=== PATIENT | male | born 1955 | race Caucasian/White ===

== ENCOUNTER 2023-06-30 10:36 | Inpatient (IN) | payer OTHER, SELFPAY ==
[2023-06-23 12:31] VITALS: BMI 24.7
[2023-06-23 13:22] LABS: Urine Bilirubin Negative (Negative); Urine Glucose Negative (Negative); Urine Ketone Negative (Negative); Urine Occult Blood 4+ (Negative); Urine Urobilinogen Negative (Neg - 1+)
[2023-06-23 13:24] LABS: % Eosinophils 9.7 % (0-6); % Immature Granulocytes 0.2 % (0-0.5); % Lymphocytes 39.7 % (20.5-51.1); % Monocytes 9.9 % (1.7-9.3); % Neutrophils 38.5 % (42.2-75.2); Absolute Basophils 0.1 10^3/uL (0-0.2); Absolute Eosinophils 0.5 10^3/uL (0-0.7); Absolute Monocytes 0.5 10^3/uL (0.1-0.6); Absolute Neutrophils 1.9 10^3/uL (1.4-6.5); Hematocrit 31.3 % (39.0-52.0); Hemoglobin 9.9 g/dL (13.0-18.0); Mean Corp Hgb Conc. 31.6 g/dL (33.0-37.0); Mean Corpuscular Hgb 25.8 pg (27.0-31.0); Mean Corpuscular Volume 81.5 fL (80.0-94.0); Mean Platelet Volume 9.5 fL (7.4-10.4); Nucleated Red Blood Cells % 0 % (-); Platelet Count 251 10^3/uL (130-400); Red Blood Cell Count 3.84 10^6/uL (4.70-6.10); Red Cell Dist. Width 15.2 % (11.5-14.5); White Blood Cell Count 4.9 10^3/uL (4.8-10.8)
[2023-06-23 13:34] LABS: ALT (SGPT) 12 U/L (0-50); AST (SGOT) 19 U/L (17-59); Albumin 3.3 g/dl (3.5-5.0); Alkaline Phosphatase 74 U/L (38-126); Blood Urea Nitrogen 12 mg/dl (9-20); Calcium 8.6 mg/dl (8.4-10.2); Carbon Dioxide 23 mmol/L (22-30); Chloride 105 mmol/L (98-107); Estimated Creatinine Clearance 60 ml/min; Glucose 88 mg/dl (70-99); Sodium 138 mmol/L (135-145); Total Bilirubin 0.7 mg/dl (0.2-1.3); Total Protein 6.3 g/dl (6.3-8.2); eGFR > 60.00
[2023-06-23 13:44] LABS: PT 32.4 Sec (11.4-14.6)
[2023-06-23 13:45] LABS: APTT 45.5 Sec (23.4-35.0)
[2023-06-23 14:04] LABS: Urine Red Blood Cell 16-20 /HPF (0-2); Urine Urothelial Cell 0-2 /LPF (FEW)
[2023-06-23 14:05] LABS: Urine Bacteria Few (Negative); Urine White Cell 0-2 /HPF (0-5)
[2023-06-23 14:07] LABS: Glycohemoglobin (HgbA1c) 5.3 % (4.0-5.6)
--- NOTE | 2023-06-23 14:28 | CM ---
Met with Mr. Foy in [facility]. He states prior to admission he resides with his girlfriend in a three story home with one step to enter. He states he stays on the first floor. He states he bedroom/full bathroom on the first floor. He states prior to
admission he was independent with ambulation and adls. He states he does not have any DME in the home. He states he has a prescription plan and uses [facility]. He states he has a pleural catheter and [facility] comes three times a week to
drain the catheter. He states his significant other will be home to assist in his care. He states he has never been to a SNF/Rehab. PUPIL PERSONNEL SERVICES DIRECTOR at Dr[facility] to send script for for Nicotine Patch. The discharge plan is to return home with his
significant other and a home visit by the Cardiothoracic Transitional Care Nurse when medically stable.
We reviewed pr-op and post-op routines. We reviewed the shower instructions. He has the soap, written instructions and the Cardiothoracic Surgery Educational Booklet. We reviewed restrictions including sternal precautions and driving
restrictions. We also discussed a home visit by the Cardiothoracic Transitional Care Nurse. He is agreeable to home visit. The plan is for AVR on Saturday, July 01, 2023.
[2023-06-30 11:19] VITALS: BMI 24.7
[2023-06-30 11:36] LABS: Hematocrit 26.7 % (39.0-52.0); Hemoglobin 8.5 g/dL (13.0-18.0); Mean Corp Hgb Conc. 31.8 g/dL (33.0-37.0); Mean Corpuscular Hgb 25.8 pg (27.0-31.0); Mean Corpuscular Volume 80.9 fL (80.0-94.0); Mean Platelet Volume 8.4 fL (7.4-10.4); Platelet Count 187 10^3/uL (130-400); Red Cell Dist. Width 16.9 % (11.5-14.5); White Blood Cell Count 4.2 10^3/uL (4.8-10.8)
[2023-06-30 11:51] LABS: APTT 25.6 Sec (23.4-35.0); INR 1.18; PT 15.1 Sec (11.4-14.6)
[2023-06-30] MEDS: PROTONIX 40 MG PO (12:29)
[2023-06-30] MEDS: TOPROL XL 25 MG PO ×2 (12:30→19:45)
[2023-06-30] MEDS: LASIX 20 MG IV (12:30)
[2023-06-30 12:50] LABS: Albumin 2.9 g/dl (3.5-5.0); Blood Urea Nitrogen 11 mg/dl (9-20); Chloride 114 mmol/L (98-107); Potassium 4.3 mmol/L (3.5-5.1); Sodium 139 mmol/L (135-145); Total Bilirubin 0.4 mg/dl (0.2-1.3)
--- NOTE | 2023-06-30 12:53 | CON.GI ---
Addendum entered and electronically signed by Lan Gregorio MD 06/30/23 18:09:
I saw and examined the patient.
The CLUTCH ASSEMBLER or PA's note was reviewed and I agree with the note.
Comment:This is a 67-year-old male with progressively severe aortic valve stenosis, A-fib on Xarelto, who has an extensive GI history and followed at [facility] in the past. I reviewed records. He seems to have iron deficiency anemia and GI
bleeding due to AVMs. He had a colonoscopy with AVMs that were treated back in 2020 as well as a prepyloric ulcer in February 2023. He most recently underwent upper endoscopy and colonoscopy in June 17, 2023 which were negative and was
recommended to have a capsule which is it is unclear if it is scheduled. Patient is a poor historian. Ultimately, I suspect he has AVMs and fixing his aortic stenosis may fix this underlying issue.
Additionally, reviewing the records there is mention that he does have alcoholic cirrhosis. His MELD is 9. CT scan done shows cirrhosis and also mentions a liver lesion. Of note, [facility] notes also mention a liver lesion and he was recommended
to follow at [facility] hepatology which she did not do. Alpha-fetoprotein has been ordered and pending. MRI has been ordered and I also added Eovist.
In regards to his risk stratification, his Meadow vocal score if he is ASA 3, 30-day mortality 4.3%, 90-day mortality 9.1%, 180-day mortality 12.6%, 90-day decompensation 5.9% for cardiac surgery. If he is in a ASA 4, 30-day mortality 11.4%, 90-day
mortality 19.9%, 180 a day mortality 26.8%, 90-day decompensation 7.8%.
I have discussed with cardiothoracic surgery.
Original Note:
Consultation
-
Date/Time Consultation Requested: 06/30/23 1200
Date/Time Consultation Performed: 06/30/23 1300
Requesting Provider: Thu Salazar PA-C
Performing Provider: MICHAEL Ford, Tiffanie Gregoiro MD
Reason for Consultation: eval for risk of surgery with hx liver disease
Medical History
Chief Complaint / HPI
Chief Complaint: anemia recent GI bleed
History of Present Illness:
Pt is a 67yo presents with progressive severe AV stenosis, HTN, afib on Xarelto with prior PVI, AV block, junctional bradycardia, cirrhosis- ETOH induced, liver lesion, ETOH abuse, prior GI bleed, NASIR, CKD, brain aneurysm, medical non compliance
asked to see from liver standpoint prior to surgical AVR for risk. In reviewing [facility] records pt was admitted in 2020 hbg 7.3 EGD with mild antral erythema small HH, patchy angioectasis in ascending colon single angioectasia in sigmoid colon
with APC treatment. 2021 with melena. EGD/colon completed with shallow prepyloric ulcer and diverticulosis with PPI started. with admission 02/2023 with rectal bleeding. EGD with HH with erosions and duodenal polyp, small IH no bleeding. He
was placed on PPI BID on discharge. During admission he had CT a/p with 2 cm liver lesion concern for HCC with neg AFP and was scheduled for liver specialist- [facility] to review but was not returning calls to GI . He was also admitted in [facility]
with large pleural effusion and PNA and Pleurx cath was placed. He returned 05/3023 with acute GI bleed requiring multiple transfusions. repeat EGD/colon neg 06/17/23 and due OP capsule.
At this time pt very poor historian. He denies hx cirrhosis, liver lesion but recalls significant GI bleed but unclear source. He currently dysphagia, GERD, nausea, vomiting, abdominal pain, diarrhea, constipation, diarrhea, constipation,
current blood or black in stools.
Past Medical History
Past Medical History: Arrhythmias (afib with PVI, AV block, junctional bradicardia with med non compliance in March with temp pacer), CAD, CHF, COPD, CVA, HTN, Hypercholesterolemia, Renal Failure (CKD), Valvular Disease (severe Aortic stenosis)
and Other (NASIR, RADHA, LV hypertrophy, brain aneurysm, medical non compliance, cirrhosis, PNA, GI bleed, liver mass, malnutrition, AVM, gastric ulcer, anemia, elevated PSA, pulm nodule, covid, effusion, ETOH abuse)
Past Surgical History: Cardiac (PVI 2018), Urological (TURP) and Other (teeth extraction 04/2023, PVI 2018, pleural drain, prostate bx )
Social History
Tobacco: Smoker (03/29 PPD)
Alcohol: Chronic Alcoholic (currrent 1-2 beers per day)
Drug: Marijuana (daily)
Personal: Other (friend)
Employment: Retired
Family History
Family History: Other (denies family hx colon cA or polyps)
Allergies / Home Medications
Allergy/AdvReac Type Severity Reaction Status Date / Time
No Known Allergies Allergy Verified 10/28/21 08:08
�Medication �Instructions �Recorded
atorvastatin 20 mg tablet 20 mg PO DAILY High Cholesterol 06/23/23
folic acid 1 mg tablet 1 mg PO DAILY Supplement 06/23/23
furosemide 20 mg tablet 20 mg PO DAILY Fluid 06/23/23
Retention/Swelling
magnesium 200 mg tablet 400 mg PO DAILY Supplement 06/23/23
metoprolol succinate 25 mg 25 mg PO BID Heart 06/23/23
tablet,extended release 24 hr Disease/Condition
omega [id number]-fish oil 1,200 mg 1 cap PO BID Supplement 06/23/23
(144 mg-216 mg) capsule (Fish Oil)
potassium chloride 20 mEq oral 20 meq PO DAILY Electrolyte 06/23/23
packet (Klor-Con) Repletion
trazodone 50 mg tablet 50 mg PO HS PRN sleep 06/23/23
vitamin B complex 1 cap PO DAILY Supplement 06/23/23
rivaroxaban 20 mg tablet (Xarelto) 20 mg PO QPM Blood Clot 06/30/23
Prevention/Tx
Review of Systems
-
Unable to obtain full review of systems at this time due to: Other (poor historian)
History Source: Patient
Constitutional: Reports No Symptoms
EENT: Reports No Symptoms
Respiratory: Reports Trouble Breathing (at times with pleurx in place )
Cardiac: Reports No Symptoms
Abdomen/GI: Reports Other (recent GI bleed )
: Reports No Symptoms
Musculoskeletal: Reports No Symptoms
Skin: Reports No Symptoms
Neurological: Reports Other (forgetful)
Endocrine: Reports No Symptoms
Hematologic/Lymphatic: Reports No Symptoms
Vital Signs
Temp Pulse Resp BP Pulse Ox
98.0 F 131 18 133/54 100
06/30/23 11:05 06/30/23 12:30 06/30/23 11:05 06/30/23 12:30 06/30/23 11:05
Physical Exam
Exam
General: Well Developed, Well Nourished and No Apparent Distress
HEENT: Normocephalic and Anicteric
Respiratory: Other (decreased bases )
Cardiac: Murmur and Other (tachy)
GI: Soft, Non Tender and Non Distended
Musculoskeletal: No Clubbing and No Cyanosis
Skin: Warm and Dry
Neuro: Awake, Alert and Other (forgetful)
Psych: Calm
Results
WBC 4.2 10^3/uL (4.8-10.8) L 06/30/23 11:28
Hgb 8.5 g/dL (13.0-18.0) L 06/30/23 11:28
Hct 26.7 % (39.0-52.0) L 06/30/23 11:28
MCV 80.9 fL (80.0-94.0) 06/30/23 11:28
Plt Count 187 10^3/uL (130-400) D 06/30/23 11:28
Absolute Neuts (auto) 1.9 10^3/uL (1.4-6.5) 06/23/23 12:24
PT 15.1 Sec (11.4-14.6) H 06/30/23 11:28
INR 1.18 06/30/23 11:28
APTT 25.6 Sec (23.4-35.0) 06/30/23 11:28
Sodium 139 mmol/L (135-145) 06/30/23 11:28
Potassium 4.3 mmol/L (3.5-5.1) 06/30/23 11:28
Chloride 114 mmol/L (98-107) H 06/30/23 11:
Carbon Dioxide 23 mmol/L (22-30) 06/23/23 12:24
BUN 11 mg/dl (9-20) 06/30/23 11:
Creatinine 0.9 mg/dL (0.7-1.3) 06/23/23 12:
Calcium 8.0 mg/dl (8.4-10.2) L 06/30/23 11:
Total Bilirubin 0.4 mg/dl (0.2-1.3) 06/30/23 11:
AST 19 U/L (17-59) 06/23/23 12:24
ALT 12 U/L (0-50) 06/23/23 12:24
Alkaline Phosphatase 74 U/L (38-126) 06/23/23 12:24
Diagnostic Image Results:
06/30/23 CT Chest/abd/pelvis- pending
Prior GI Procedures:
EGD: 2018 - Normal esophagus. irreg Z line, antral gastritis, SM nodule in stomach, 2 SM nodule Duodenal bulb, bx duodenitis , reactive gastropathy, neg H pylori, sprue
Colonoscopy:2018- - Preparation of the colon was fair. 10 mm polyp proximal sigmodi colon, clip placed bx TA no high grade dysplasia or maligancy
Assessment / Plan
-
Pt is a 67yo presents with progressive severe AV stenosis, HTN, afib on Xarelto with prior PVI, AV block, junctional bradycardia, cirrhosis- ETOH induced, liver lesion, ETOH abuse, prior GI bleed, NASIR, CKD, brain aneurysm, medical non compliance
asked to see from liver standpoint prior to surgical AVR for risk. In reviewing [facility] records pt was admitted in 2020 hbg 7.3 EGD with mild antral erythema small HH, patchy angioectasis in ascending colon single angioectasia in sigmoid colon
with APC treatment. 2021 with melena. EGD/colon completed with shallow prepyloric ulcer and diverticulosis with PPI started. with admission 02/2023 with rectal bleeding. EGD with HH with erosions and duodenal polyp, small IH no bleeding. He
was placed on PPI BID on discharge. During admission he had CT a/p with 2 cm liver lesion concern for HCC with neg AFP and was scheduled for liver specialist- [facility] to review but was not returning calls to GI . He was also admitted in March
with large pleural effusion and PNA and Pleurx cath was placed. He returned 05/3023 with acute GI bleed requiring multiple transfusions. repeat EGD/colon neg 06/17/23 and due OP capsule.
At this time pt very poor historian. He denies hx cirrhosis, liver lesion but recalls significant GI bleed but unclear source. He currently dysphagia, GERD, nausea, vomiting, abdominal pain, diarrhea, constipation, diarrhea, constipation,
current blood or black in stools.
-severe due for surgical AVR
-anemia
-hx several GI bleeds last 05/2023 with multiple transfusions no source found due for capsule not completed
-hx colonic angioectasia with APC 2020
-hx prepyloric ulcer 2021
-hx cirrhosis ETOH related
-liver lesion- due for hepatology follow up normal AFP 02/2023
-large pleural effusion with pleux cath since March
-intermittent elevated INR ? Xarelto related
-hypoalbuminemia
other medical problems:
-junctional bradicardia with temp pacer in March
-HTN
-afib on Xarelto prior PVI
-HH
-right radial artery calcification
-marijuana daily use
-NASIR
-continued tobacco use
-brain aneurysm unclear if any prior intervention
-medical non compliance
-BPH with TURP neg bx
-pulm nodules
PLAN:
pt current eval from GI prior to SAVR
await CT to further characterize liver lesion, add repeat AFP was normal in February and due OP follow up with [facility]
may need further hepatology eval prior to SAVR with concern for liver mass possible HCC
[facility] records reviewed but no eval of prior liver serologies
will calculate vocal Marcio score with Dr. Gregorio
trend INR, CBC with recent anemia but no signs of active GI bleeding at this time
will review with Dr. Gregorio for further recommendations after CT reviewed
-
-
Thank you for consultation and allowing me to participate in the patient's care. Please call the electronic typesetting machine operator GI physician during the after hours with any questions or concerns.
[2023-06-30 12:59] LABS: Total Iron Binding Capacity 387 ug/dl (261-462)
--- NOTE | 2023-06-30 13:04 | PTCARENOTE ---
Pt admitted to Room 2263 as same day admit. Pt placed on monitor. #20 aleksey placed Rt AC. EKG done. Labs sent. Pt NPO since this am. Admission history obtained. Dr. Dent in to see patient. Pt with Rt pleurax drain in place, capped. See worklist for
VS/I and O and assessments.
--- NOTE | 2023-06-30 13:06 | W.PN.UPDATE ---
Update Note
Progress Note Update
Patient seen as an outpatient in the office by attending physician.
Please refer to visit on 06/07/2023 for full history and physical.
Patient admitted to [facility] on 06/30/2023 to complete preadmission testing. Patient to undergo repeat type and screen due to antibodies. H&H due to recent GI bleed, and CT of the chest abdomen and pelvis with and without IV contrast
for history of cirrhosis.
Patient admitted to CV unit via telemetry. Repeat CBC revealed a hemoglobin of 8.5 and hematocrit of 26.7 which is down from his previous draw on 06/23/23 (9.9/31.3). The rest of the patient's lab values revealed no acute abnormalities. The
patient was seen by attending physician Dr. Jordan Dent MD. Consults were placed to cardiology as well as gastroenterology.
Despite denying coughing up blood or blood in stool, given his drop in hemoglobin, we will plan on postponing his surgery until tentatively 07/06/2023. During this time we will complete formal GI workup.\\
Home medications have been ordered. Preoperative cardiothoracic surgery orders were discontinued. We will continue to hold the patient's Xarelto which she is on for atrial fibrillation. Discussion was had regarding the patient's anticoagulation
status. We will hold off on systemic anticoagulation with IV heparin and monitor him on telemetry for his current atrial fibrillation.
[2023-06-30 13:07] LABS: ALT (SGPT) < 10 U/L (0-50); AST (SGOT) 18 U/L (17-59); Alkaline Phosphatase 91 U/L (38-126); Carbon Dioxide 20 mmol/L (22-30); Estimated Creatinine Clearance 56 ml/min; Glucose 93 mg/dl (70-99); Iron 32 ug/dl (49-181); Percent Saturation 8 % (20-50); eGFR > 60.00
--- NOTE | 2023-06-30 13:49 | CON.CAR ---
Addendum entered and electronically signed by Sony Doan MD 06/30/23 17:42:
Attending addendum: Patient seen and examined. Known severe now symptomatic aortic stenosis. Dr. Dent recommended surgical AVR several years ago. The patient has been noncompliant with regular followup. He has been admitted to [facility] on several occasions over the past several months with recurrent GIB and has seen GI at [facility]. He has a history of alcohol use/abuse and possible cirrhosis. He has permanent atrial fibrillation and had been on oral anticoagulation. He had
a history of stopping and starting cardiac medications including sotalol and amiodarone. Dr. Dent spoke with patient and he was admitted today for possible surgical AVR tomorrow. However, several issues have arisen. HE was found to have hepatic
mass on CT imaging. Cardiology consult has been requested to assist with management
Gen: Awake, alert, oriented
HEENT: NC/AT, sclera anicteric
Lungs: Clear
CV: Irreg irreg and tachycardic. Crescendo decrescendo murmur at USB
Abd: soft, nontender, nondistended. Bowel sounds present
Ext: no edema
RECOMMENDATIONS:
-Aortic stenosis:
Likely severe symptomatic aortic stenosis.
I would repeat echocardiogram here to reassess aortic valve and mitral valve
GI input re: cirrhosis before ANY intervention is necessary
-Atrial fibrillation:
Hgb 8.5 with Hx of GI bleeding
Xarelto had been on hold in anticipation of surgery
GI is planning to see and evaluate.
We could utilize heparin if he will be off DOAC for several days
Could consider titration of beta keya OR low dose amiodarone as part of rate control strategy. He had been on amiodarone in the past. Not sure why it was stopped.
----Amiodarone is hepatically cleared so will need to discuss with GI
-GI Bleeding:
GI to see and evaluate possible GI bleeding and possible cirrhosis
CT now noting mass in liver
-Medial noncompliance
-Will continue to followup
Original Note:
Medical History
-
History of Present Illness:
Patient presented to for direct admission for planned SAVR tomorrow. Patient follows with Dr. Levine at [facility]. Patient was found to have severe and was evaluated for TAVR, but due to significant calcifications extending into his LVOT it
was felt that he would be better served by surgical AVR. Patient was then referred to Dr. Dent for severe and was recommended surgical AVR approximately 11/2021, but then no-showed repeatedly and stopped returning phone calls. Patient was also
spotty with follow up at his primary hand tapper's office, but has had a series of admissions to [facility] since about 01/2023. He has a h/o recurrent GIB. He was admitted for GIB 02/2023 and treated for gastric erosions and hemorrhoidal bleeding.
Patient then admitted to [facility] with bradycardia and HRs in the 30s requiring temporary transvenous pacemaker 03/2023 in the setting of taking old prescriptions of amiodarone and sotalol for unclear reasons. Once patient no longer had access to meds his
HR improved, temp wire was removed and he was restarted on Toprol. Patient then had 2 GIB admissions to [facility] 05/2023 and in between admissions saw Dr. Dent in the office and was agreeable to resuming SAVR. Patient with an extensive PMH as outlined
above after combing through all available [facility] records.
PMH:
Severe
previously recommended surgical AVR 11/2021, but patient cancelled and no-showed to multiple appointments
Anemia
h/o GIB
recent admission for GIB to [facility] requiring 5 units PRBCs, no obvious bleeding source by EGD/colon, needs outpatient capsule endoscopy 06/17/23
GIB with erosions and hemorrhoids at [facility] 02/2023
GIB with melena, ulcer and diverticular disease 2021
GIB with Hgb as low as 7, erythema, angiectasias 2020
Liver lesion concerning for HCC 03/24/23
AFP was normal
Alcoholic cirrhosis
Daily ETOH intake
Daily marijuana smoker
Chronic HFpEF
Right pleural effusion s/p Pleurx catheter being drained 3x/week since 03/2023
Persistent to permanent Afib
s/p PVI 12/29/17
previously on sotalol 2020, stopped due to QT prolongation
amiodarone started and then stopped due to failure to maintain SR
Chronic Xarelto OAC
Admission to [facility] for bradycardia and pleural effusion 03/2023
HR 30s requiring temporary transvenous pacer due to patient medication noncompliance and taking old prescriptions of amiodarone and sotalol for unclear reasons, resolved with washout period and eventually restarted on Toprol XL 25 mg daily
NASIR
CAD with 30-40% mid LAD lesion by cath 10/28/21
Diffuse severe calcific right radial artery by cath 10/28/21
Brain aneurysm, 2 mm ANGELITA aneurysm by MRA head 06/2013
BPH s/p TURP with negative biopsy 2020
Past Medical History
Past Medical History: Other (in HPI)
Past Surgical History: Cardiac (PVI 2017)
Social History
Tobacco: Smoker
Alcohol: Daily
Drug: Marijuana
Personal: Partner
Living: With Family
Family History
Family History: CAD, Diabetes and Hypertension
Allergies / Home Medications
Allergy/AdvReac Type Severity Reaction Status Date / Time
No Known Allergies Allergy Verified 10/28/21 08:08
�Medication �Instructions �Recorded �Confirmed �Type
atorvastatin 20 mg tablet 20 mg PO DAILY High Cholesterol 06/23/23 06/30/23 History
folic acid 1 mg tablet 1 mg PO DAILY Supplement 06/23/23 06/30/23 History
furosemide 20 mg tablet 20 mg PO DAILY Fluid 06/23/23 06/30/23 History
Retention/Swelling
magnesium 200 mg tablet 400 mg PO DAILY Supplement 06/23/23 06/30/23 History
metoprolol succinate 25 mg 25 mg PO BID Heart 06/23/23 06/30/23 History
tablet,extended release 24 hr Disease/Condition
omega 0-enb-fve-fish oil 1,200 mg 1 cap PO BID Supplement 06/23/23 06/30/23 History
(144 mg-216 mg) capsule (Fish Oil)
potassium chloride 20 mEq oral 20 meq PO DAILY Electrolyte 06/23/23 06/30/23 History
packet (Klor-Con) Repletion
trazodone 50 mg tablet 50 mg PO HS PRN sleep 06/23/23 06/30/23 History
vitamin B complex 1 cap PO DAILY Supplement 06/23/23 06/30/23 History
rivaroxaban 20 mg tablet (Xarelto) 20 mg PO QPM Blood Clot 06/30/23 06/30/23 History
Prevention/Tx
Review of Systems
-
History Source: Patient
All other systems: Negative unless noted
Physical Exam
Vital Signs
Temp Pulse Resp BP Pulse Ox
98.0 F 118 18 133/54 99
06/30/23 11:05 06/30/23 13:15 06/30/23 11:05 06/30/23 12:30 06/30/23 13:20
GEN: NAD. AAOx3
HEENT: EOMI
LUNGS: CTA B/L, no wheezes or rales
CV: Reg, S1/S2, 3/6 syst LSB
ABD: soft, BS+, NT, ND
EXT: No clubbing, cyanosis, lesions or edema B/L
NEURO: Gross non-focal
SKIN: Warm, dry and pink. No rash
Lab Results
06/30/23 11:28
06/30/23 11:28
Impression / Plan
-
Primary Md Ophthalmologist: Dr. Levine of [facility]
Research & Insights Executive: Dr. Quinn
Assessment:
Direct admission 06/30/23 prior to planned surgical AVR for severe 07/01/23
Severe
previously recommended surgical AVR 11/2021, but patient cancelled and no-showed to multiple appointments
Anemia
h/o GIB
recent admission for GIB to [facility] requiring 5 units PRBCs, no obvious bleeding source by EGD/colon, needs outpatient capsule endoscopy 06/17/23
GIB with erosions and hemorrhoids at [facility] 02/2023
GIB with melena, ulcer and diverticular disease 2021
GIB with Hgb as low as 7, erythema, angiectasias 2020
Liver lesion concerning for HCC 03/24/23
AFP was normal
Alcoholic cirrhosis
Daily ETOH intake
Daily marijuana smoker
Chronic HFpEF
Right pleural effusion s/p Pleurx catheter being drained 3x/week since 03/2023
Persistent to permanent Afib
s/p PVI 12/29/17
previously on sotalol 2020, stopped due to QT prolongation
amiodarone started and then stopped due to failure to maintain SR
Chronic Xarelto OAC
Admission to [facility] for bradycardia and pleural effusion 03/2023
HR 30s requiring temporary transvenous pacer due to patient medication noncompliance and taking old prescriptions of amiodarone and sotalol for unclear reasons, resolved with washout period and eventually restarted on Toprol XL 25 mg daily
NASIR
CAD with 30-40% mid LAD lesion by cath 10/28/21
Diffuse severe calcific right radial artery by cath 10/28/21
Brain aneurysm, 2 mm ANGELITA aneurysm by MRA head 06/2013
BPH s/p TURP with negative biopsy 2020
ECHO 03/2017: GV study, with preserved EF, LVH with wall thickness 1.2cm, mitral leaflet calcification with mild MS, mod , peak/mean gradients of 30/17mmHg, mild TR, PAP 43mmHg.
Echo 03/2023: GV study, Normal biventricular systolic function, mild LVH, severely dilated LA and moderately dilated RA, sev , moderate aortic regurgitation with mean gradient 39 mmHg, mod MR
Echo 06/2022: GV study, ILEANA less than 0.5 cm sq
Plan:
-Patient presented to for direct admission for planned SAVR tomorrow. Patient follows with Dr. Levine at [facility]. Patient was found to have severe and was evaluated for TAVR, but due to significant calcifications extending into his LVOT
it was felt that he would be better served by surgical AVR. Patient was then referred to Dr. Dent for severe and was recommended surgical AVR approximately 11/2021, but then no-showed repeatedly and stopped returning phone calls. Patient was
also spotty with follow up at his primary hand tapper's office, but has had a series of admissions to [facility] since about 01/2023. He has a h/o recurrent GIB. He was admitted for GIB 02/2023 and treated for gastric erosions and hemorrhoidal bleeding.
Patient then admitted to [facility] with bradycardia and HRs in the 30s requiring temporary transvenous pacemaker 03/2023 in the setting of taking old prescriptions of amiodarone and sotalol for unclear reasons. Once patient no longer had access to meds his
HR improved, temp wire was removed and he was restarted on Toprol. Patient then had 2 GIB admissions to [facility] 05/2023 and in between admissions saw Dr. Dent in the office and was agreeable to resuming SAVR. Patient with an extensive PMH as outlined
above after combing through all available [facility] records.
-Patient with h/o severe , previously recommended SAVR. Currently stable and admitted with plans for surgery tomorrow.
-Hgb now delayed to 07/06/23 due to Hgb of 8.5. Patient with multiple GIB admissions to [facility] as detailed above.
-Outpatient dose of Xarelto is on hold and no plans for Heparin bridging due to concern for GIB.
-GI following. There is also concern for a liver mass that was previously seen 03/24/23. Review of [facility] GI notes shows that their office repeatedly tried to arrange follow up with [facility] and patient refused to go to appointments and
other times would hang up the phone on their office. Repeat CT abd/pelvis today confirms a 2.6 cm liver lesion concerning for HCC. He also has known alcoholic cirrhosis and continues to drink. Although Plt 187 and LFTs normal.
-He smokes marijuana daily.
-Afib is permanent. ECG reviewed by me shows Afib with HR 110. Cont outpatient dose of Toprol XL 25 mg BID. He singh a PVI in 2018. Previously on sotalol that was stopped due to prolonged QT. Amiodarone stopped due to ineffectiveness.
-Previous admission 03/2023 for bradycardia and temp wire at [facility] was due to unexplained medication noncompliance and has not recurred.
-Check echo
[2023-06-30 13:59] LABS: Ferritin 8.2 ng/ml (17.9-464.0)
--- NOTE | 2023-06-30 14:47 | CM ---
Chart reviewed. Patient surgery was cancelled 2/2 drop in his hemoglobin and now needs a GI workup. AVR surgery is being rescheduled for 07/05. Patient is independent of ADLS, lives with his girlfriend in a 1st floor apartment, 1 ADAIR, 0 DME.
Patient is current with [facility] to manage his pleurax catheter. Plan is for the patient to return home with CT Transitional RN. CM to follow
[2023-06-30 15:08] VITALS: BMI 24.7
[2023-06-30 16:26] VITALS: BP 154/79
--- NOTE | 2023-06-30 18:09 | W.PN.UPDATE ---
Update Note
Progress Note Update
billing purposes
[2023-06-30] MEDS: LIPITOR 20 MG PO (18:10)
[2023-06-30 19:26] LABS: AFP Male/Tumor Marker 1.97 ng/ml
[2023-06-30 19:43] VITALS: BP 136/83
--- NOTE | 2023-06-30 20:41 | PTCARENOTE ---
received patient from CVICU at the change of shift. AAOx3. denies any pain. ambulating independently in the room. Afib on tele-115s. bp stable. patient denies any palps/cp. oriented patient to room. answered all questions. reviewed plan of care and
verbalized understanding. call marrero within reach.
[2023-06-30 22:38] VITALS: BP 103/93
[2023-07-01] VITALS (8 sets, daily range): BP systolic 104–138; BP diastolic 49–86; BMI 24.6
--- NOTE | 2023-07-01 01:29 | W.PN.CT ---
Addendum entered and electronically signed by Jordan Dent MD 07/01/23 09:11:
CARDIAC SURGERY ATTENDING:
Mr. Foy is extremely well-known to me. He is a very pleasant 67-year-old gentleman with a complex medical history and numerous social factors that have negatively affected his overall workup/care. He was initially evaluated by our structural
heart team back in 2021, but deemed more of an appropriate candidate for SAVR given the high degree of annular and subvalvular calcifications. The patient was lost to follow-up numerous times and canceled numerous scheduled appointments, failing to
respond to certified letters. More recently he has had episodes of poorly rate controlled atrial fibrillation, recurrent right-sided effusions requiring Pleurx catheter placement, significant acute blood loss anemia following recent GI bleed, and
increasing symptomatology from his aortic stenosis. A CT�C/A/P was obtained yesterday and demonstrated a cirrhotic appearing liver with a liver lesion that was concerning for possible HCC. GI was consulted, and I greatly appreciate their
expertise. Given his cirrhosis and this liver lesion coupled with his other comorbidities, the patient was represented at multidisciplinary structural heart team conference. From a risk v. benefit perspective, it was determined that TAVR would be
preferred over SAVR. Given that the extensive annular and subvalvular calcifications, TAVR will be at elevated procedural risks and elevated risk of post TAVR PVL. This was discussed with the patient. He is scheduled to undergo an MRI to further
define his liver lesion. Pending the results of the study, we will proceed with potential TAVR next week.
Please call with any questions or concerns.
Jordan Dent MD
[phone]
Original Note:
Today's Communication / Plan
-
67-year-old male admitted on 06/30/2023 for surgical optimization and possible AVR with Dr. Dent next week
#Atrial fibrillation
-Currently on metoprolol succinate 25 mg p.o. twice daily
-Heart rate 90s to 110s; consider up titration of metoprolol
-Previously on Xarelto; to consider eventual heparin drip
-Cardiology consulted
#Acute blood loss anemia with recent GI bleed due to AVM
-Continue to monitor CBC daily
-Transfuse as needed
-Pending MRI
-Hemoccult all stools
-GI consulted
#Liver cirrhosis
-MELD score equal 9
-CT scan yesterday showed liver cirrhosis and a liver lesion
-Monitor CBC and coags
#Severe aortic stenosis
-Continue surgical optimization for SAVR next week with Dr. Dent
-Will need additional type and screen
-Cardiology consulted
Assessment / Plan
-
Severe aortic stenosis
Recent GI bleed
EtOH abuse
Chronic atrial fibrillation s/p pulmonary vein isolation on Xarelto
Obstructive sleep apnea
Recurrent pleural effusions status post Pleurx placement in March 2023
History of iron deficiency anemia
Hyperlipidemia
History of a CVA; no residual
Chronic diastolic congestive heart failure
History of AV block/junctional bradycardia
Single-vessel nonobstructive CAD
Chronic kidney disease
History of medical noncompliance
COPD
Cirrhosis/liver mass
Gastric ulcer
Discussed patient care with: Nursing
Subjective
Procedure
Preoperative optimization for AVR next week with Dr. Dent
-
Date of Service: July 01, 2023
Objective Data
-
07/01/23 03:38
07/01/23 03:38
PT 15.1 Sec (11.4-14.6) H 06/30/23 11:28
INR 1.18 06/30/23 11:28
APTT 25.6 Sec (23.4-35.0) 06/30/23 11:28
Vital Signs
Vital Signs
Temp Pulse Resp BP Pulse Ox
98.4 F 113 18 103/93 96
06/30/23 22:42 06/30/23 22:38 06/30/23 22:42 06/30/23 22:38 06/30/23 22:42
CT Intake/Output/Weight
06/30/23 06/30/23 07/01/23
06:59 18:59 06:59
Intake Total 1550 / 1999 450 / 1999
Balance 1550 / 1999 450 / 1999
SaO2: 96
[2023-07-01 04:07] LABS: Hematocrit 28.3 % (39.0-52.0); Hemoglobin 8.6 g/dL (13.0-18.0); Mean Corp Hgb Conc. 30.4 g/dL (33.0-37.0); Mean Corpuscular Hgb 24.9 pg (27.0-31.0); Mean Platelet Volume 8.8 fL (7.4-10.4); Platelet Count 197 10^3/uL (130-400); Red Blood Cell Count 3.45 10^6/uL (4.70-6.10); Red Cell Dist. Width 16.7 % (11.5-14.5); White Blood Cell Count 7.1 10^3/uL (4.8-10.8)
--- NOTE | 2023-07-01 04:34 | PTCARENOTE ---
patient states sleeping well. ambulated to the BR this morning. small formed BM, light brown. dyspnea on exertion noted. 96% on RA. with ambulation HR 120s. with rest, HR 100s. bp 128/85. pleurx drain dressing changed. cleansed with sterile water.
reviewed plan of care with patient. NPO for MRI of abdomen. patient verbalized understanding.
[2023-07-01 04:58] LABS: Blood Urea Nitrogen 14 mg/dl (9-20); Calcium 8.3 mg/dl (8.4-10.2); Carbon Dioxide 21 mmol/L (22-30); Chloride 104 mmol/L (98-107); Estimated Creatinine Clearance 56 ml/min; Glucose 99 mg/dl (70-99); Potassium 4.3 mmol/L (3.5-5.1); Sodium 134 mmol/L (135-145); eGFR > 60.00
--- NOTE | 2023-07-01 06:06 | W.PN.GI.CBS2 ---
Today's Communication / Plan
-
See assessment plan for details.
Assessment / Plan
-
1. 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
had significant gross bleeding. At this point would continue iron supplementation as needed and supportive care, okay for anticoagulation if indicated with close monitoring.
2. Liver lesion: With reported underlying cirrhosis possibly secondary to alcohol, though even if did have cirrhosis is overall well compensated, MELD score of 9. There is an indeterminate liver lesion noted on imaging, the alpha-fetoprotein is
normal, for follow-up at [facility] on discharge. Will follow-up on MRI here, though likely will not change plan for anticipated aortic valve replacement. In regards to his risk stratification, his [employer] vocal score if he is ASA 3, 30-day mortality
4.3%, 90-day mortality 9.1%, 180-day mortality 12.6%, 90-day decompensation 5.9% for cardiac surgery. If he is in a ASA 4, 30-day mortality 11.4%, 90-day mortality 19.9%, 180 a day mortality 26.8%, 90-day decompensation 7.8%.
Subjective
Subjective
Date of Service: July 01, 2023
Patient feeling well, no GI complaints, no signs of GI bleeding, no abdominal pain, nausea or vomiting.
Objective
Data Reviewed
Laboratory Data:
Laboratory Results
07/01/23 03:38
07/01/23 03:38
Laboratory Results
PT 15.1 Sec (11.4-14.6) H 06/30/23 11:28
INR 1.18 06/30/23 11:28
APTT 25.6 Sec (23.4-35.0) 06/30/23 11:28
Total Bilirubin 0.4 mg/dl (0.2-1.3) 06/30/23 11:28
AST 18 U/L (17-59) 06/30/23 11:28
ALT < 10 U/L (0-50) 06/30/23 11:28
Alkaline Phosphatase 91 U/L (38-126) 06/30/23 11:28
Vital Signs and I&O:
Vital Signs
Temp Pulse Resp BP Pulse Ox
98.7 F 115 22 128/85 98
07/01/23 03:43 07/01/23 03:38 07/01/23 03:43 07/01/23 03:38 07/01/23 03:43
I&O
06/29/23 06/30/23 07/01/23
06:59 06:59 06:59
Intake Total 1999
Balance 1999
Physical Exam
Physical Exam
General: NAD
Abdomen: normal bowel sounds, soft, no tenderness, no masses or bruits, no ascites
--- NOTE | 2023-07-01 12:16 | CM ---
Reviewed chart, Met with Mr. Foy to review discharge plans. He states he is feeling okay. He is waiting for possible valve surgery next week. Prior to admission he resides with his significant other in a three story home with one step to enter.
He stays on the first floor. Prior to admission he was independent with ambulation and adls. He does not have any DME in the home. He has a pleural catheter and [facility] comes out three times a week to drain it. He has a prescription plan and
uses [facility]. Medical work-up in progress. The discharge plan is to return home with his significant other and a home visit by the Cardiothoracic Transitional Care Nurse when medically stable.
--- NOTE | 2023-07-01 13:55 | W.PN.UPDATE ---
Update Note
Progress Note Update
Patient presented by Dr. Dent to the Heart Team at the shared decision making meeting this morning. After extensive discussion reviewing imaging including echo, Cardiac Catheterizations and CT scan and discussion of co-morbidities and surgical
risk, it was felt that TAVR utilizing a 34mm Evolut valve via transfemoral access was the best option over surgery. Dr. Dent to discuss with the patient given extensive calcium the risks for rupture and paravalvular leak will be higher. He will
also clarify with GI the overall prognosis for the pateint given his possible HCC and significant cirrhosis. If after MRI to evaluate liver mass, the decision remains to proceed with TAVR, the plan will be to perform the TAVR procedure on 07/05.
Spoke to patient and he is aware of the plan. Allowed for and answered questions.
--- NOTE | 2023-07-01 14:41 | W.PN.CARDCBS ---
Today's Communication / Plan
-
Multidisciplinary care team approach with plan for tentative TAVR next Tuesday
Appreciate GI evaluation and will await abdominal MRI
Impression / Plan
-
Primary Afternoon Babysitter: Dr. Levine of [facility]
Auto Claim Representative: Dr. Quinn
Assessment:
Direct admission 06/30/23 prior to planned surgical AVR for severe 07/01/23
Severe
previously recommended surgical AVR 11/2021, but patient cancelled and no-showed to multiple appointments
Anemia
h/o GIB
recent admission for GIB to [facility] requiring 5 units PRBCs, no obvious bleeding source by EGD/colon, needs outpatient capsule endoscopy 06/17/23
GIB with erosions and hemorrhoids at [facility] 02/2023
GIB with melena, ulcer and diverticular disease 2021
GIB with Hgb as low as 7, erythema, angiectasias 2020
Liver lesion concerning for HCC 03/24/23
AFP was normal
Alcoholic cirrhosis
Daily ETOH intake
Daily marijuana smoker
Chronic HFpEF
Right pleural effusion s/p Pleurx catheter being drained 3x/week since 03/2023
Persistent to permanent Afib
s/p PVI 12/29/17
previously on sotalol 2020, stopped due to QT prolongation
amiodarone started and then stopped due to failure to maintain SR
Chronic Xarelto OAC
Admission to [facility] for bradycardia and pleural effusion 03/2023
HR 30s requiring temporary transvenous pacer due to patient medication noncompliance and taking old prescriptions of amiodarone and sotalol for unclear reasons, resolved with washout period and eventually restarted on Toprol XL 25 mg daily
NASIR
CAD with 30-40% mid LAD lesion by cath 10/28/21
Diffuse severe calcific right radial artery by cath 10/28/21
Brain aneurysm, 2 mm ANGELITA aneurysm by MRA head 06/2013
BPH s/p TURP with negative biopsy 2020
ECHO 03/2017: GVH study, with preserved EF, LVH with wall thickness 1.2cm, mitral leaflet calcification with mild MS, mod , peak/mean gradients of 30/17mmHg, mild TR, PAP 43mmHg.
Echo 03/2023: GVH study, Normal biventricular systolic function, mild LVH, severely dilated LA and moderately dilated RA, sev , moderate aortic regurgitation with mean gradient 39 mmHg, mod MR
Echo 06/2022: GVH study, ILEANA less than 0.5 cm sq
Plan:
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
preserved LV systolic function complicated by permanent atrial fibrillation, poorly controlled with history of GI bleed/anemia requiring transfusions, recurrent right-sided pleural effusions with Pleurx catheter, alcoholic cirrhosis and now new
liver lesions concerning for hepatocellular carcinoma.
-Multidisciplinary team discussion regarding care options
-Appreciate GI input awaiting MRI
-Consideration for TAVR tentatively planned for July 05
-Monitor hemoglobin, currently 8.6 with history of multiple GI bleeds. Xarelto discontinued. No plans for heparin bridge at this time
-Remains in permanent relatively asymptomatic atrial fibrillation with poorly controlled rates in the low 100s. Will continue Toprol-XL 25 mg twice daily and uptitrate as able. Previously did not tolerate sotalol secondary to prolonged QT.
Patient apparently restarted sotalol at home prior to this admission; patient cautioned about self adjusting/restarting medications without consulting his medical providers. Amiodarone was apparently ineffective.
-Patient with recurrent pleural effusions with Pleurx catheter; chest x-ray today shows small bilateral pleural effusions than left. right greater he is asking for his catheter to be drained; relayed this to CT surgery.
Progress Note - Afternoon Babysitter
Subjective
Date of Service: July 01, 2023
Seen and examined this morning prior to planned abdominal MRI. Offers no complaints. Denies chest pain or pressure. No shortness of breath. No palpitations. No abdominal pain. No dizziness.
Objective
Labs:
07/01/23 03:38
07/01/23 03:38
Labs
Hgb 8.6 g/dL (13.0-18.0) L 07/01/23 03:38
Hct 28.3 % (39.0-52.0) L 07/01/23 03:38
Plt Count 197 10^3/uL (130-400) 07/01/23 03:38
PT 15.1 Sec (11.4-14.6) H 06/30/23 11:28
INR 1.18 06/30/23 11:28
APTT 25.6 Sec (23.4-35.0) 06/30/23 11:28
Sodium 134 mmol/L (135-145) L 07/01/23 03:38
Potassium 4.3 mmol/L (3.5-5.1) 07/01/23 03:38
BUN 14 mg/dl (9-20) 07/01/23 03:38
Creatinine 1.0 mg/dL (0.7-1.3) 07/01/23 03:38
Glucose 99 mg/dl (70-99) 07/01/23 03:38
Vital Signs and I&O:
Vital Signs
Temp Pulse Resp BP Pulse Ox
98.6 F 116 20 138/84 97
07/01/23 11:59 07/01/23 12:30 07/01/23 11:59 07/01/23 11:59 07/01/23 11:59
Vital Signs
Temp Pulse Resp BP Pulse Ox
98.6 F 116 20 138/84 97
07/01/23 11:59 07/01/23 12:30 07/01/23 11:59 07/01/23 11:59 07/01/23 11:59
Intake & Output
06/29/23 06/30/23 07/01/23 07/02/23
06:59 06:59 06:59 06:59
Intake Total 1999
Balance 1999
Physical Exam
Physical Exam
Gen: Awake, alert, oriented
HEENT: NC/AT, sclera anicteric
Lungs: Bronchovesicular breath sounds, decreased at the bases. Positive Pleurx catheter
CV: Irreg irreg and tachycardic. Crescendo decrescendo murmur at USB
Abd: soft, nontender, nondistended. Bowel sounds present
Ext: no edema
--- NOTE | 2023-07-01 14:51 | PTCARENOTE ---
Pt AAOx3, drowsy but arousable this AM. Pt has been NPO since midnight awaiting ABD MRI. Spoke w/MRI & now pt is rescheduled for MRI Sat AM. Diet order resumed for this PM & pt's AM meds administered as ordered. VS stable, w/pt Afib w/HR 90's-110's
on telemetry monitoring. Pt w/call marrero within reach & plan of care ongoing.
[2023-07-01] MEDS: LASIX 20 MG PO (14:59)
[2023-07-01] MEDS: MAGNESIUM OXIDE 500 MG PO (15:00)
[2023-07-01] MEDS: TOPROL XL 37.5 MG PO (15:00)
[2023-07-01] MEDS: KCL 20 MEQ PO (15:00)
[2023-07-01] MEDS: FOLVITE 1 MG PO (15:00)
--- NOTE | 2023-07-01 16:08 | PN.IRAD.UPD ---
Update Note - IRAD
- -
450ml clear yellow pleural fluid removed via right Asept catheter at bedside. 300 ml pleural fluid removed by RN at bedside via right Asept catheter. New clean ,dry dressing place over site. Patient tolerated procedure well.
--- NOTE | 2023-07-01 16:11 | PTCARENOTE ---
This RN spoke w/CT surgery PA & IR was consulted to come up & assist w/draining pt's R lateral chest Asept drainage catheter. Initially 300 mLs of serosanguineous drainage removed by CT PA via sterile 20 mL syringe. An addtl 450 mLs of
serosanguineous drainage removed by IR RN. Pt tolerated procedure well, reporting 'discomfort' at the 450 mL omaira of drainage during the 2nd drainage via suction canister. Suction discontinued, a total of 750 mLs of serosanguineous drainage removed.
IR nurse redressed Asept catheter using sterile technique. Pt w/no c/o pain or SOB. Plan of care ongoing.
[2023-07-01] MEDS: LIPITOR 20 MG PO (18:20)
--- NOTE | 2023-07-01 21:10 | PTCARENOTE ---
Received pt at handoff. AOX3. MSAS score 1. HR 80-100s. Tele- afib. Assessment noted as documented. R lateral Asept drain dsg c/d/i. Offers no c/o at this time. Currently in bed; call elida w/in reach.
[2023-07-01] MEDS: TOPROL XL PO (23:47)
[2023-07-01] MEDS: TOPROL XL 12.5 MG PO (23:54)
[2023-07-02] VITALS (7 sets, daily range): BP systolic 107–128; BP diastolic 56–94; BMI 24.2
--- NOTE | 2023-07-02 00:11 | PTCARENOTE ---
Pt received 0800 metoprolol 37.5mg at 1500 d/t pt away at testing. Burt COMBS notified. BP 107/65. Afib 90-100s. Metoprolol 37.5mg due for 1999 held and metoprolol 12.5mg administered per Burt Luna. See MAY.
[2023-07-02 05:09] LABS: Magnesium 1.7 mg/dl (1.6-2.3)
--- NOTE | 2023-07-02 05:52 | W.PN.CT ---
Addendum entered and electronically signed by Jordan Dent MD 07/02/23 09:27:
I saw and examined the patient.
The PA's note was reviewed and I agree with the note.
Comment:
Case discussed in multidisciplinary fashion, including discussions w/ my surgical colleagues at [facility]. Given extensive comorbidities, will plan for TAVR this Tuesday
- F/U MRI
- Greatly appreciate the expertise and assistance from all involved.
Original Note:
Today's Communication / Plan
-
Plan:
-Cont. current meds (Toprol XL, Lipitor, Lasix/Kcl)
-Awaiting MRI to R/O hepatocellular carcinoma
-Monitor pleural drainage, ongoing drainage of Pleurx catheter
-Pt not a SAVR candidate, tentatively for TAVR on Wednesday 07/05
Assessment / Plan
-
Assessment:
-Severe aortic stenosis
-Moderate AI
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
-Mild TR
-LVEF 60-65%
-Probable hepatocellular carcinoma (2.6 cm)
-Recent GI bleed
-EtOH abuse
-Chronic atrial fibrillation s/p pulmonary vein isolation on relto
-Obstructive sleep apnea
-Recurrent pleural effusions status post Pleurx placement in March 2023
-History of iron deficiency anemia
-Hyperlipidemia
-History of a CVA; no residual
-Chronic diastolic congestive heart failure
-History of AV block/junctional bradycardia
-Single-vessel nonobstructive CAD
-Chronic kidney disease
-History of medical noncompliance
-COPD
-Cirrhosis/liver mass
-Gastric ulcer
Discussed patient care with: Cardiology, Nursing, Respiratory Therapy, Pharmacy and Care Team
Subjective
-
Date of Service: July 02, 2023
No issues overnight. Denies CP/SOB
Objective Data
-
Lab Results
07/01/23 03:38
07/01/23 03:38
PT 15.1 Sec (11.4-14.6) H 06/30/23 11:28
INR 1.18 06/30/23 11:28
APTT 25.6 Sec (23.4-35.0) 06/30/23 11:28
Vital Signs
Vital Signs
Temp Pulse Resp BP Pulse Ox
98.7 F 102 16 114/66 97
07/02/23 03:50 07/02/23 04:00 07/02/23 03:50 07/02/23 03:52 07/02/23 03:50
CT Intake/Output/Weight
07/01/23 07/01/23 07/02/23
06:59 18:59 06:59
Intake Total 450 / 2000 240 / 240
Output Total 750 / 950 200 / 950
Balance 450 / 2000 -510 / -710 -200 / -710
SaO2: 97 (RA)
Physical Exam
-
General: Awake, Oriented and AOx3
Cardiovascular: Regular rate & rhythm, Murmur (3/6 systolic), No Rub and No Gallop
Respiratory: Decreased Breath Sounds
Incision: Clean, Dry and Intact
Extremities: Edema +1
Data Reviewed
-
Lab Results: Results Reviewed
Medications: Active Meds Reviewed
Chest X-Ray: Report Reviewed and Image Reviewed
CT Scan: Report Reviewed and Image Reviewed
ECG: Report Reviewed and Image Reviewed
--- NOTE | 2023-07-02 07:11 | W.PN.CARDCBS ---
Addendum entered and electronically signed by Mando Perez MD 07/02/23 10:36:
Patient seen, interviewed and examined by me.
Well-appearing, no acute distress
Irregular rate and rhythm with normal S1 and S2, no S3 no S4. There is a grade 1/6 apical holosystolic murmur and no rubs. PMI is normally placed.
Lungs are clear to auscultation bilaterally without wheezes rales or rhonchi.
Abdomen soft nontender nondistended with normoactive bowel sounds
Extremities show trace pretibial edema bilaterally no clubbing or cyanosis.
Neurologic exam is grossly nonfocal.
Agree with advanced practice professionals assessment and plan as noted below.
We are providing hold parameters for Toprol-XL.
Continue inpatient evaluation for potential TAVR
Original Note:
Today's Communication / Plan
-
Adding hold parameters to Toprol XL
Afib is permanent, plan is for rate control
Now being considered for TAVR
Impression / Plan
-
Primary Soaking Room Operator: Dr. Levine of [facility]
[place] Registered Nurse: Dr. Quinn
Assessment:
Direct admission 06/30/23 prior to planned surgical AVR for severe 07/01/23
now being considered for a TAVR on 07/06/23
Severe
previously recommended surgical AVR 11/2021, but patient cancelled and no-showed to multiple appointments
Anemia
h/o GIB
recent admission for GIB to [facility] requiring 5 units PRBCs, no obvious bleeding source by EGD/colon, needs outpatient capsule endoscopy 06/17/23
GIB with erosions and hemorrhoids at [facility] 02/2023
GIB with melena, ulcer and diverticular disease 2021
GIB with Hgb as low as 7, erythema, angiectasias 2020
Liver lesion concerning for HCC 03/24/23, seen on repeat CT at 06/30/23
AFP was normal
Alcoholic cirrhosis
Daily ETOH intake
Daily marijuana smoker
Chronic HFpEF
Right pleural effusion s/p Pleurx catheter being drained 3x/week since 03/2023
Persistent to permanent Afib
s/p PVI 12/29/17
previously on sotalol 2020, stopped due to QT prolongation
amiodarone started and then stopped due to failure to maintain SR
Chronic Xarelto OAC
Admission to [facility] for bradycardia and pleural effusion 03/2023
HR 30s requiring temporary transvenous pacer due to patient medication noncompliance and taking old prescriptions of amiodarone and sotalol for unclear reasons, resolved with washout period and eventually restarted on Toprol XL 25 mg daily
NASIR
CAD with 30-40% mid LAD lesion by cath 10/28/21
Diffuse severe calcific right radial artery by cath 10/28/21
Brain aneurysm, 2 mm ANGELITA aneurysm by MRA head 06/2013
BPH s/p TURP with negative biopsy 2020
Likely severe mitral stenosis with mean gradient 11 and mod MR by echo 07/01/23
ECHO 03/2017: GVH study, with preserved EF, LVH with wall thickness 1.2cm, mitral leaflet calcification with mild MS, mod , peak/mean gradients of 30/17mmHg, mild TR, PAP 43mmHg.
Echo 03/2023: GVH study, Normal biventricular systolic function, mild LVH, severely dilated LA and moderately dilated RA, sev , moderate aortic regurgitation with mean gradient 39 mmHg, mod MR
Echo 06/2022: GVH study, ILEANA less than 0.5 cm sq
Echo 07/01/23: EF 60-65%, severe LA and mod right RA dilatation, likely severe MS with mean gradient 11 mmHg and mod MR with very eccentric regurgitant jet possibly underestimating severity of MR, severe with peak/mean 73/39 mmHg and ILEANA 0.6 cm sq,
mild TR
Plan:
-Patient was directly admitted on 06/30/23 for a planned surgical AVR on 07/01/23, but as noted above has been found to have a number of issues. Previously patient was evaluated for TAVR, but due to significant calcifications extending into his LVOT it
was felt that he would be better served by surgical AVR. Now that patient is less likely to be a SAVR candidate due to multiple comorbidities TAVR is being pursued.
-Patient with liver lesion that was previously seen 03/24/23. Review of [facility] notes shows that their office repeatedly tried to arrange follow up with [facility] and patient refused to go to appointments and other times would hang up the
phone on their office. Repeat CT abd/pelvis at 06/30/23 confirms a 2.6 cm liver lesion concerning for HCC. MRI liver pending
-He also has known alcoholic cirrhosis and continues to drink. Although Plt 197 and LFTs normal and GI considers him compensated from a liver standpoint.
-Echo 07/01/23 showed likely severe MS with mean gradient 11 mmHg
-Hgb stable at 8.6. Patient with multiple GIB admissions to [facility] as detailed above.
-Outpatient dose of Xarelto is on hold and no plans for Heparin bridging due to concern for GIB.
-He smokes marijuana daily at home.
-Afib is permanent. Patient was taking Toprol XL 25 mg BID prior to admission, dose increased to 37.5 mg BID this admission, but doses intermittently held due to hypotension with BP 107/65. Will add hold parameters to Toprol XL for SBP less than 95
or HR less than 55. He had a PVI in 2018. Previously on sotalol that was stopped due to prolonged QT. Amiodarone stopped due to ineffectiveness.
-Previous admission 03/2023 for bradycardia and temp wire at [facility] was due to unexplained medication noncompliance and has not recurred.
-Check ECG 07/02/23. He now says that he had inexplicably restarted sotalol prior to this admission.
HPI: Patient presented to for direct admission for planned SAVR tomorrow. Patient follows with Dr. Levine at [facility]. Patient was found to have severe and was evaluated for TAVR, but due to significant calcifications extending into his
LVOT it was felt that he would be better served by surgical AVR. Patient was then referred to Dr. Dent for severe and was recommended surgical AVR approximately 11/2021, but then no-showed repeatedly and stopped returning phone calls. Patient
was also spotty with follow up at his primary back end developer's office, but has had a series of admissions to [facility] since about 01/2023. He has a h/o recurrent GIB. He was admitted for GIB 02/2023 and treated for gastric erosions and hemorrhoidal
bleeding. Patient then admitted to [facility] with bradycardia and HRs in the 30s requiring temporary transvenous pacemaker 03/2023 in the setting of taking old prescriptions of amiodarone and sotalol for unclear reasons. Once patient no longer had access
to meds his HR improved, temp wire was removed and he was restarted on Toprol. Patient then had 2 GIB admissions to [facility] 05/2023 and in between admissions saw Dr. Dent in the office and was agreeable to resuming SAVR. Patient with an extensive PMH
as outlined above after combing through all available [facility] records.
Progress Note - Soaking Room Operator
Subjective
Date of Service: July 02, 2023
He feels well, no chest pain or SOB
Objective
Labs:
07/01/23 03:38
Labs
Hgb 8.6 g/dL (13.0-18.0) L 07/01/23 03:38
Hct 28.3 % (39.0-52.0) L 07/01/23 03:38
Plt Count 197 10^3/uL (130-400) 07/01/23 03:38
PT 15.1 Sec (11.4-14.6) H 06/30/23 11:28
INR 1.18 06/30/23 11:28
APTT 25.6 Sec (23.4-35.0) 06/30/23 11:28
Sodium 134 mmol/L (135-145) L 07/01/23 03:38
Potassium 4.3 mmol/L (3.5-5.1) 07/01/23 03:38
BUN 14 mg/dl (9-20) 07/01/23 03:38
Creatinine 1.0 mg/dL (0.7-1.3) 07/01/23 03:38
Glucose 99 mg/dl (70-99) 07/01/23 03:38
Vital Signs and I&O:
Vital Signs
Temp Pulse Resp BP Pulse Ox
98.7 F 102 16 114/66 97
07/02/23 03:50 07/02/23 04:00 07/02/23 03:50 07/02/23 03:52 07/02/23 06:33
Vital Signs
Temp Pulse Resp BP Pulse Ox
98.7 F 102 16 114/66 97
07/02/23 03:50 07/02/23 04:00 07/02/23 03:50 07/02/23 03:52 07/02/23 06:33
Intake & Output
06/30/23 07/01/23 07/02/23 07/03/23
06:59 06:59 06:59 06:59
Intake Total 1999 240 / 240
Output Total 950 / 950
Balance 1999 -710 / -710
Physical Exam
Physical Exam
GEN: NAD. AAOx3
HEENT: EOMI
LUNGS: No audible wheeze
CV: Irreg irreg, S1/S2, 3/6 syst LSB
ABD: ND
EXT: No edema B/L
NEURO: Gross non-focal
SKIN: No rash
[2023-07-02 07:14] LABS: Blood Urea Nitrogen 12 mg/dl (9-20); Calcium 8.4 mg/dl (8.4-10.2); Carbon Dioxide 24 mmol/L (22-30); Chloride 104 mmol/L (98-107); Estimated Creatinine Clearance 62 ml/min; Glucose 95 mg/dl (70-99); Potassium 4.5 mmol/L (3.5-5.1); Sodium 131 mmol/L (135-145); eGFR > 60.00
--- NOTE | 2023-07-02 08:30 | W.PN.GI.CBS2 ---
Today's Communication / Plan
-
See assessment and plan for details, still awaiting MRI
Assessment / Plan
-
1. 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
had significant gross bleeding. At this point would continue iron supplementation as needed and supportive care, okay for anticoagulation if indicated with close monitoring.
2. Liver lesion: With reported underlying cirrhosis possibly secondary to alcohol, though even if did have cirrhosis is overall well compensated, MELD score of 9. There is an indeterminate liver lesion noted on imaging, the alpha-fetoprotein is
normal, for follow-up at [facility] on discharge. Will follow-up on MRI here, though likely will not change plan for anticipated aortic valve replacement. In regards to his risk stratification, his Marcio vocal score if he is ASA 3, 30-day mortality
4.3%, 90-day mortality 9.1%, 180-day mortality 12.6%, 90-day decompensation 5.9% for cardiac surgery. If he is in a ASA 4, 30-day mortality 11.4%, 90-day mortality 19.9%, 180 a day mortality 26.8%, 90-day decompensation 7.8%.
Subjective
Subjective
Date of Service: July 02, 2023
Patient feeling okay, no new issues overnight, no signs of bleeding, denies any abdominal pain, nausea or vomiting, tolerating diet well.
Objective
Data Reviewed
Laboratory Data:
Laboratory Results
07/01/23 03:38
07/02/23 03:58
Laboratory Results
PT 15.1 Sec (11.4-14.6) H 06/30/23 11:28
INR 1.18 06/30/23 11:28
APTT 25.6 Sec (23.4-35.0) 06/30/23 11:28
Magnesium 1.7 mg/dl (1.6-2.3) 07/02/23 03:58
Total Bilirubin 0.4 mg/dl (0.2-1.3) 06/30/23 11:28
AST 18 U/L (17-59) 06/30/23 11:28
ALT < 10 U/L (0-50) 06/30/23 11:28
Alkaline Phosphatase 91 U/L (38-126) 06/30/23 11:28
Vital Signs and I&O:
Vital Signs
Temp Pulse Resp BP Pulse Ox
98.7 F 102 16 114/66 97
07/02/23 03:50 07/02/23 04:00 07/02/23 03:50 07/02/23 03:52 07/02/23 06:33
I&O
07/01/23 07/02/23 07/03/23
06:59 06:59 06:59
Intake Total 1999 240 / 240
Output Total 950 / 950
Balance 1999 -710 / -710
Physical Exam
Physical Exam
General: NAD
Abdomen: normal bowel sounds, soft, no tenderness, no masses or bruits, no ascites
[2023-07-02] MEDS: MAGNESIUM OXIDE 500 MG PO (08:46)
[2023-07-02] MEDS: LASIX 20 MG PO (08:46)
[2023-07-02] MEDS: FOLVITE 1 MG PO (08:46)
[2023-07-02] MEDS: KCL 20 MEQ PO (08:46)
[2023-07-02] MEDS: TOPROL XL 37.5 MG PO ×2 (08:47→19:49)
--- NOTE | 2023-07-02 10:55 | PTCARENOTE ---
Assumed care of pt from night RN. Pt received awake and alert, Ox3. VSS, CM shows AF 90-100's, POX 98% on RA. Pt denies any pain or discomfort at this time. Plan for TAVR on Tue.
[2023-07-02] MEDS: LIPITOR 20 MG PO (17:13)
[2023-07-03] VITALS (7 sets, daily range): BP systolic 98–142; BP diastolic 41–88; BMI 24.3
[2023-07-03 02:28] LABS: Hematocrit 26.6 % (39.0-52.0); Hemoglobin 8.5 g/dL (13.0-18.0); Mean Corpuscular Hgb 25.1 pg (27.0-31.0); Mean Corpuscular Volume 78.7 fL (80.0-94.0); Mean Platelet Volume 8.8 fL (7.4-10.4); Platelet Count 153 10^3/uL (130-400); Red Blood Cell Count 3.38 10^6/uL (4.70-6.10); Red Cell Dist. Width 16.3 % (11.5-14.5); White Blood Cell Count 5.5 10^3/uL (4.8-10.8)
[2023-07-03 02:54] LABS: Blood Urea Nitrogen 14 mg/dl (9-20); Calcium 8.3 mg/dl (8.4-10.2); Carbon Dioxide 24 mmol/L (22-30); Chloride 105 mmol/L (98-107); Estimated Creatinine Clearance 62 ml/min; Glucose 104 mg/dl (70-99); Magnesium 1.7 mg/dl (1.6-2.3); Potassium 4.5 mmol/L (3.5-5.1); Sodium 133 mmol/L (135-145); eGFR > 60.00
--- NOTE | 2023-07-03 05:12 | W.PN.CT ---
Addendum entered and electronically signed by Jordan Dent MD 07/03/23 09:06:
I saw and examined the patient.
The PA's note was reviewed and I agree with the note.
Comment:
MRI pending
Plan for TAVR Tuesday
Original Note:
Today's Communication / Plan
-
Plan:
-Cont. current meds (Toprol XL, Lipitor, Lasix/Kcl)
-Still awaiting MRI to R/O hepatocellular carcinoma
-Monitor pleural drainage, ongoing drainage of Pleurx catheter
-Pt not a SAVR candidate, tentatively for TAVR on Wednesday 07/05
-appreciate cardiology's recs
Assessment / Plan
-
Assessment:
-Severe aortic stenosis
-Moderate AI
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
-Mild TR
-LVEF 60-65%
-Probable hepatocellular carcinoma (2.6 cm)
-Recent GI bleed
-EtOH abuse
-Chronic atrial fibrillation s/p pulmonary vein isolation on Xarelto
-Obstructive sleep apnea
-Recurrent pleural effusions status post Pleurx placement in March 2023
-History of iron deficiency anemia
-Hyperlipidemia
-History of a CVA; no residual
-Chronic diastolic congestive heart failure
-History of AV block/junctional bradycardia
-Single-vessel nonobstructive CAD
-Chronic kidney disease
-History of medical noncompliance
-COPD
-Cirrhosis/liver mass
-Gastric ulcer
Subjective
-
Date of Service: July 03, 2023
No overnight events. Afib with vent. rate in the low 100s.
Objective Data
-
Lab Results
07/03/23 02:22
07/03/23 02:22
PT 15.1 Sec (11.4-14.6) H 06/30/23 11:28
INR 1.18 06/30/23 11:28
APTT 25.6 Sec (23.4-35.0) 06/30/23 11:28
Vital Signs
Vital Signs
Temp Pulse Resp BP Pulse Ox
98.4 F 106 18 128/86 98
07/02/23 22:11 07/02/23 22:08 07/02/23 19:22 07/02/23 22:08 07/02/23 22:11
CT Intake/Output/Weight
07/02/23 07/02/23 07/03/23
06:59 18:59 06:59
Output Total 200 / 950 900 / 900
Balance -200 / -710 -900 / -900
SaO2: 98
Physical Exam
-
General: Awake and Oriented
Cardiovascular: Irregular rate & rhythm, Murmur and No Rub
Respiratory: Clear
Extremities: Other (trace)
Data Reviewed
-
Lab Results: Results Reviewed
Medications: Active Meds Reviewed
Chest X-Ray: Report Reviewed
CT Scan: Report Reviewed
--- NOTE | 2023-07-03 07:56 | W.PN.GI.CBS2 ---
Today's Communication / Plan
-
See assessment and plan for details.
Assessment / Plan
-
1. 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
had significant gross bleeding. At this point would continue iron supplementation as needed and supportive care, okay for anticoagulation if indicated with close monitoring.
2. Liver lesion: With reported underlying cirrhosis possibly secondary to alcohol, though even if did have cirrhosis is overall well compensated, MELD score of 9. There is an indeterminate liver lesion noted on imaging, the alpha-fetoprotein is
normal, for follow-up at [facility] on discharge. Will follow-up on MRI here which is scheduled for this morning, though likely will not change plan for anticipated aortic valve replacement. In regards to his risk stratification, his [place] [employer] vocal score
if he is ASA 3, 30-day mortality 4.3%, 90-day mortality 9.1%, 180-day mortality 12.6%, 90-day decompensation 5.9% for cardiac surgery. If he is in a ASA 4, 30-day mortality 11.4%, 90-day mortality 19.9%, 180 a day mortality 26.8%, 90-day
decompensation 7.8%.
Subjective
Subjective
Date of Service: July 03, 2023
Patient feeling well, no signs of bleeding, no abdominal pain, nausea or vomiting.
Objective
Data Reviewed
Laboratory Data:
Laboratory Results
07/03/23 02:22
07/03/23 02:22
Laboratory Results
PT 15.1 Sec (11.4-14.6) H 06/30/23 11:28
INR 1.18 06/30/23 11:28
APTT 25.6 Sec (23.4-35.0) 06/30/23 11:28
Magnesium 1.7 mg/dl (1.6-2.3) 07/03/23 02:22
Total Bilirubin 0.4 mg/dl (0.2-1.3) 06/30/23 11:28
AST 18 U/L (17-59) 06/30/23 11:28
ALT < 10 U/L (0-50) 06/30/23 11:28
Alkaline Phosphatase 91 U/L (38-126) 06/30/23 11:28
Vital Signs and I&O:
Vital Signs
Temp Pulse Resp BP Pulse Ox
98.1 F 97 20 133/74 97
07/03/23 07:17 07/03/23 07:17 07/03/23 07:17 07/03/23 07:17 07/03/23 07:17
I&O
07/02/23 07/03/23 07/04/23
06:59 06:59 06:59
Intake Total 240 / 240
Output Total 950 / 950 900 / 900 150 / 150
Balance -710 / -710 -900 / -900 -150 / -150
Physical Exam
Physical Exam
General: NAD
Abdomen: normal bowel sounds, soft, no tenderness, no masses or bruits, no ascites
[2023-07-03] MEDS: ATIVAN 1 MG IV (09:31)
[2023-07-03] MEDS: NSS (PRESERVATIVE FREE) 0.5 ML IV (09:32)
--- NOTE | 2023-07-03 10:20 | PTCARENOTE ---
Assumed care of pt from night RN. Pt received sleeping but easily arousable. VSS, CM shows AF 80-90's, POX 97% on RA. He remains NPO for abd MRI today. Pt given 1 mg Ativan as per MAY and sent to MRI. Call received from library cataloging technician; some metal
tubing noted in abd. MRI aborted for now.
--- NOTE | 2023-07-03 10:44 | W.PN.UPDATE ---
Update Note
Progress Note Update
Discussed with radiology, in retrospect there is metallic object that is been chronic and stable, though indicates he is getting an MRI. Again this would likely not change overall decision making as this is a small lesion, alpha-fetoprotein is
normal. Will follow-up at [facility] as previously set up as an outpatient. We will sign off for now, please call back with any further questions.
[2023-07-03] MEDS: FOLVITE 1 MG PO (13:15)
[2023-07-03] MEDS: MAGNESIUM OXIDE 500 MG PO (13:15)
[2023-07-03] MEDS: LASIX 20 MG PO (13:16)
[2023-07-03] MEDS: TOPROL XL 37.5 MG PO ×2 (13:16→19:37)
[2023-07-03] MEDS: KCL 20 MEQ PO (13:17)
--- NOTE | 2023-07-03 17:20 | W.PN.UPDATE ---
Update Note
Progress Note Update
IV Heparin infusion initiated for persistent atrial fibrillation as off Xarelto
[2023-07-03] MEDS: LIPITOR 20 MG PO (18:06)
[2023-07-03] MEDS: HEPARIN 3700 UNITS IV (18:08)
[2023-07-03] MEDS: HEPARIN 25000 UNITS/250 ML IV (18:10)
--- NOTE | 2023-07-03 18:24 | PTCARENOTE ---
PTT drawn = 32.0, Heparin 3,700 units given IV bolus followed by Heparin drip at 750 units/hr through RAC as ordered. PLT count was 153, this was reported to Dianne Diaz NP. Next PTT due at 0030.
--- NOTE | 2023-07-03 22:03 | PTCARENOTE ---
Heparin infusing at 750 units/hr. Denied any complaints of pain or discomfort. Remains in A-fib on the monitor, 90's to low 100's. Sleeping at intervals.
[2023-07-04] MEDS: DESYREL 50 MG PO ×2 (00:19→22:16)
[2023-07-04 01:07] LABS: APTT 41.1 Sec (23.4-35.0)
[2023-07-04 04:17] VITALS: BP 142/97
--- NOTE | 2023-07-04 05:10 | W.PN.CT ---
Today's Communication / Plan
-
-Cont. current meds (Toprol XL, Lipitor, Lasix/Kcl)
-heparin gtt started while off Xarelto
-MRI complete, await official read.
-Monitor pleural drainage, ongoing drainage of Pleurx catheter
-Pt not a SAVR candidate, tentatively for TAVR on Wednesday 07/05
-appreciate GI/cardiology's recs
Assessment / Plan
-
Assessment:
-Severe aortic stenosis
-Moderate AI
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
-Mild TR
-LVEF 60-65%
-Probable hepatocellular carcinoma (2.6 cm)
-Recent GI bleed
-EtOH abuse
-Chronic atrial fibrillation s/p pulmonary vein isolation on Xarelto
-Obstructive sleep apnea
-Recurrent pleural effusions status post Pleurx placement in March 2023
-History of iron deficiency anemia
-Hyperlipidemia
-History of a CVA; no residual
-Chronic diastolic congestive heart failure
-History of AV block/junctional bradycardia
-Single-vessel nonobstructive CAD
-Chronic kidney disease
-History of medical noncompliance
-COPD
-Cirrhosis/liver mass
-Gastric ulcer
Subjective
-
Date of Service: July 04, 2023
MRI completed, await read. No other complaints.
Objective Data
-
Lab Results
07/03/23 02:22
07/03/23 02:22
PT 15.1 Sec (11.4-14.6) H 06/30/23 11:28
INR 1.18 06/30/23 11:28
APTT 41.1 Sec (23.4-35.0) H 07/04/23 00:44
Vital Signs
Vital Signs
Temp Pulse Resp BP Pulse Ox
98.6 F 95 20 142/97 98
07/04/23 04:15 07/04/23 04:17 07/04/23 04:15 07/04/23 04:17 07/04/23 04:15
CT Intake/Output/Weight
07/03/23 07/03/23 07/04/23
06:59 18:59 06:59
Output Total 150 / 650 500 / 650
Balance -150 / -650 -500 / -650
SaO2: 98
Physical Exam
-
General: Awake and Oriented
Cardiovascular: Irregular rate & rhythm, Murmur and No Gallop
Respiratory: Clear and Equal
Extremities: Edema +1
Data Reviewed
-
Lab Results: Results Reviewed
Medications: Active Meds Reviewed
Chest X-Ray: Report Reviewed
ECG: Report Reviewed
[2023-07-04 07:28] VITALS: BP 150/70
--- NOTE | 2023-07-04 07:59 | W.PN.CARDCBS ---
Addendum entered and electronically signed by Jd Siddiqui DO 07/04/23 10:17:
I saw and examined the patient.
The Resource Director's note was reviewed and I agree with the note.
Comment:
Plan:
Possible TAVR TueJuly 05
Afib is permanent. Cont Toprol, QTc stable
IV Heparin while off oral anticoagulation
Pt does have some MS/MR but does not have surgical options.
H/H stable with multiple admits for GI bleeding in the past.
Reviewed with inteventional cardiology.
Original Note:
Today's Communication / Plan
-
Possible TAVR Tuesday
Cont higher dose Toprol XL, QTc stable
Heparin gtt started yesterday, Hgb was stable
Impression / Plan
-
Primary Transmitter Tester: Dr. Levine of [facility]
Aprn: Dr. Quinn
Assessment:
Direct admission 06/30/23 prior to planned surgical AVR for severe 07/01/23
now being considered for a TAVR on 07/06/23
Severe
previously recommended surgical AVR 11/2021, but patient cancelled and no-showed to multiple appointments
Likely severe mitral stenosis with mean gradient 11 and mod MR by echo 07/01/23
Anemia
h/o GIB
recent admission for GIB to [facility] requiring 5 units PRBCs, no obvious bleeding source by EGD/colon, needs outpatient capsule endoscopy 06/17/23
GIB with erosions and hemorrhoids at [facility] 02/2023
GIB with melena, ulcer and diverticular disease 2021
GIB with Hgb as low as 7, erythema, angiectasias 2020
Liver lesion concerning for HCC 03/24/23, seen on repeat CT at 06/30/23
AFP was normal
Alcoholic cirrhosis
Daily ETOH intake
Daily marijuana smoker
Chronic HFpEF
Right pleural effusion s/p Pleurx catheter being drained 3x/week since 03/2023
Persistent to permanent Afib
s/p PVI 12/29/17
previously on sotalol 2020, stopped due to QT prolongation
amiodarone started and then stopped due to failure to maintain SR
Chronic Xarelto OAC
Admission to [facility] for bradycardia and pleural effusion 03/2023
HR 30s requiring temporary transvenous pacer due to patient medication noncompliance and taking old prescriptions of amiodarone and sotalol for unclear reasons, resolved with washout period and eventually restarted on Toprol XL 25 mg daily
NASIR
CAD with 30-40% mid LAD lesion by cath 10/28/21
Diffuse severe calcific right radial artery by cath 10/28/21
Brain aneurysm, 2 mm ANGELITA aneurysm by MRA head 06/2013
BPH s/p TURP with negative biopsy 2020
ECHO 03/2017: [facility] study, with preserved EF, LVH with wall thickness 1.2cm, mitral leaflet calcification with mild MS, mod , peak/mean gradients of 30/17mmHg, mild TR, PAP 43mmHg.
Echo 03/2023: [facility] study, Normal biventricular systolic function, mild LVH, severely dilated LA and moderately dilated RA, sev , moderate aortic regurgitation with mean gradient 39 mmHg, mod MR
Echo 06/2022: [facility] study, ILEANA less than 0.5 cm sq
Echo 07/01/23: EF 60-65%, severe LA and mod right RA dilatation, likely severe MS with mean gradient 11 mmHg and mod MR with very eccentric regurgitant jet possibly underestimating severity of MR, severe with peak/mean 73/39 mmHg and ILEANA 0.6 cm sq,
mild TR
Plan:
-GI notes reviewed and MRI was not completed due to metallic object, but that findings would likely not change overall decision making as this is a small lesion, and alpha-fetoprotein is normal. GI then signed off and recommended follow-up at
[facility]. As previously noted the GI group at [facility] has been trying to arrange liver f/u at [facility] for months for patient and he hangs up on their office when they call or won't answer their calls.
-Patient was directly admitted on 06/30/23 for a planned surgical AVR on 07/01/23, but as noted above has been found to have a number of issues. Previously patient was evaluated for TAVR, but due to significant calcifications extending into his LVOT it
was felt that he would be better served by surgical AVR. Now that patient is not a SAVR candidate due to multiple comorbidities TAVR is being pursued.
-He also has known alcoholic cirrhosis and continues to drink. Although Plt 197 and LFTs normal and GI considers him compensated from a liver standpoint.
-Echo 07/01/23 showed likely moderate to severe MS with mean gradient 11 mmHg
-Hgb stable. Patient with multiple GIB admissions to [facility] as detailed above.
-Outpatient dose of Xarelto on hold since prior to admission. Heparin bridge started 07/03/23.
-Afib is permanent.Toprol XL dose increased to 37.5 mg BID this admission. He had a PVI in 2018. Previously on sotalol that was stopped due to prolonged QT. Amiodarone stopped due to ineffectiveness. QTc 423 ms by ECG 07/02/23
-Previous admission 03/2023 for bradycardia and temp wire at [facility] was due to unexplained medication noncompliance in the form of taking old prescriptions for sotalol and amiodarone he had laying around his house.
-Check ECG 07/02/23. He now says that he had inexplicably restarted sotalol prior to this admission.
HPI: Patient presented to for direct admission for planned SAVR tomorrow. Patient follows with Dr. Levine at [facility]. Patient was found to have severe and was evaluated for TAVR, but due to significant calcifications extending into his
LVOT it was felt that he would be better served by surgical AVR. Patient was then referred to Dr. Dent for severe and was recommended surgical AVR approximately 11/2021, but then no-showed repeatedly and stopped returning phone calls. Patient
was also spotty with follow up at his primary help desk consultant's office, but has had a series of admissions to [facility] since about 01/2023. He has a h/o recurrent GIB. He was admitted for GIB 02/2023 and treated for gastric erosions and hemorrhoidal
bleeding. Patient then admitted to [facility] with bradycardia and HRs in the 30s requiring temporary transvenous pacemaker 03/2023 in the setting of taking old prescriptions of amiodarone and sotalol for unclear reasons. Once patient no longer had access
to meds his HR improved, temp wire was removed and he was restarted on Toprol. Patient then had 2 GIB admissions to [facility] 05/2023 and in between admissions saw Dr. Dent in the office and was agreeable to resuming SAVR. Patient with an extensive PMH
as outlined above after combing through all available [facility] records.
Progress Note - Transmitter Tester
Subjective
Date of Service: July 04, 2023
He feels well, he's hungry
Objective
Labs:
07/03/23 02:22
07/03/23 02:22
Labs
Hgb 8.5 g/dL (13.0-18.0) L 07/03/23 02:22
Hct 26.6 % (39.0-52.0) L 07/03/23 02:22
Plt Count 153 10^3/uL (130-400) D 07/03/23 02:22
PT 15.1 Sec (11.4-14.6) H 06/30/23 11:28
INR 1.18 06/30/23 11:28
APTT 41.1 Sec (23.4-35.0) H 07/04/23 00:44
Sodium 133 mmol/L (135-145) L 07/03/23 02:22
Potassium 4.5 mmol/L (3.5-5.1) 07/03/23 02:22
BUN 14 mg/dl (9-20) 07/03/23 02:22
Creatinine 0.9 mg/dL (0.7-1.3) 07/03/23 02:22
Glucose 104 mg/dl (70-99) H 07/03/23 02:22
Vital Signs and I&O:
Vital Signs
Temp Pulse Resp BP Pulse Ox
97.5 F 105 20 150/70 97
07/04/23 07:24 07/04/23 07:28 07/04/23 07:24 07/04/23 07:28 07/04/23 07:24
Vital Signs
Temp Pulse Resp BP Pulse Ox
97.5 F 105 20 150/70 97
07/04/23 07:24 07/04/23 07:28 07/04/23 07:24 07/04/23 07:28 07/04/23 07:24
Intake & Output
07/02/23 07/03/23 07/04/23 07/05/23
06:59 06:59 06:59 06:59
Intake Total 240 / 240
Output Total 950 / 950 900 / 900 650 / 650
Balance -710 / -710 -900 / -900 -650 / -650
Physical Exam
Physical Exam
GEN: NAD. AAOx3
HEENT: EOMI
LUNGS: No audible wheeze
CV: Irreg irreg, 3/6 syst LSB
ABD: ND
EXT: No edema B/L
NEURO: Gross non-focal
SKIN: No rash
[2023-07-04 08:32] VITALS: BMI 24.5
[2023-07-04 08:42] LABS: APTT 57.4 Sec (23.4-35.0)
--- NOTE | 2023-07-04 09:09 | PTCARENOTE ---
Rec'd pt AAOx3 this AM w/no c/o CP or SOB. Pt's VS stable w/HR in the 80's-90's at rest & in the 100's w/activity. Pt remains Afib on telemetry monitoring. IV Heparin drip infusing through patent IV line per MD order. PTT at 0822 was 57.4 per
ordered protocol, rate increased by 200 units to 1150u/hr. Pt w/Asept drain w/sterile dressing C/D/I. Pt w/call marrero within reach & no addtl needs at this time.
[2023-07-04] MEDS: VITAMIN C 500 MG PO (09:46)
[2023-07-04] MEDS: MAGNESIUM OXIDE 500 MG PO (09:46)
[2023-07-04] MEDS: TOPROL XL 37.5 MG PO ×2 (09:46→20:07)
[2023-07-04] MEDS: FEOSOL 325 MG PO ×2 (09:46→20:06)
[2023-07-04] MEDS: FOLVITE 1 MG PO (09:47)
[2023-07-04] MEDS: SENOKOT-S 1 TABLET PO ×2 (09:47→20:09)
[2023-07-04] MEDS: KCL 20 MEQ PO (09:47)
[2023-07-04] MEDS: LASIX 20 MG PO (09:47)
--- NOTE | 2023-07-04 10:07 | PN.IRAD.UPD ---
Update Note - IRAD
- -
Drained 950 ml of fluid from right sided Asept catheter. Site dressed with gauze and a tegaderm.
Miguel Mendes RT(R)()
[2023-07-04 11:28] VITALS: BP 146/67
--- NOTE | 2023-07-04 15:09 | CM ---
Reviewed chart.. Met with Mr. Foy to review discharge plans. He states he is feeling well and is going for a TAVR on Tuesday07/06/23. Prior to admission he resides with his significant other in a three story home with three steps to enter. He
has a first floor set-up. Prior to admission he was independent with ambulation and adls. He does not have any DME in the home. He has a prescription and uses [facility]. Medical work-up in progress. The discharge plan is to return home with his
significant other and a home visit by the Cardiothoracic Transitional Care Nurse when medically stable.
[2023-07-04 15:14] VITALS: BP 129/76
[2023-07-04 18:18] LABS: APTT 71.4 Sec (23.4-35.0)
[2023-07-04] MEDS: LIPITOR 20 MG PO (18:43)
[2023-07-04 20:03] VITALS: BP 136/76
[2023-07-04] MEDS: HEPARIN 25000 UNITS/250 ML IV (20:18)
[2023-07-04 22:14] VITALS: BP 135/75
--- NOTE | 2023-07-05 03:32 | PTCARENOTE ---
No complaints of pain or discomfort. Heparin infusing at 1250 units/hr. Remains in A-fib on the monitor in the 80's.
--- NOTE | 2023-07-05 03:59 | W.PN.CT ---
Addendum entered and electronically signed by Jordan Dent MD 07/05/23 16:29:
I saw and examined the patient.
The PA's note was reviewed and I agree with the note.
Comment:
Pt. for TAVR tomorrow
Original Note:
Today's Communication / Plan
-
-Cont. current meds (Heparin gtt, Toprol XL, Lipitor, Lasix/Kcl)
-Cont. to hold Xarelto
-MRI complete, await official read
-Monitor pleural drainage, ongoing drainage of Pleurx catheter
-Pt not a SAVR candidate, tentatively for TAVR tomorrow 07/05
-Appreciate GI/Cardiology's input
Assessment / Plan
-
Assessment:
-Severe aortic stenosis
-Moderate AI
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
-Mild TR
-LVEF 60-65%
-Probable hepatocellular carcinoma (2.6 cm)
-Recent GI bleed
-EtOH abuse
-Chronic atrial fibrillation s/p pulmonary vein isolation on Xarelto
-Obstructive sleep apnea
-Recurrent pleural effusions status post Pleurx placement in March 2023
-History of iron deficiency anemia
-Hyperlipidemia
-History of a CVA; no residual
-Chronic diastolic congestive heart failure
-History of AV block/junctional bradycardia
-Single-vessel nonobstructive CAD
-Chronic kidney disease
-History of medical noncompliance
-COPD
-Cirrhosis/liver mass
-Gastric ulcer
Discussed patient care with: Cardiology, Nursing, Pharmacy and Care Team
Subjective
-
Date of Service: July 05, 2023
No issues overnight. Denies CP/SOB overnight
Objective Data
-
PT 15.1 Sec (11.4-14.6) H 06/30/23 11:28
INR 1.18 06/30/23 11:28
APTT 87.0 Sec (23.4-35.0) H 07/05/23 00:53
Vital Signs
Vital Signs
Temp Pulse Resp BP Pulse Ox
98.3 F 92 20 135/75 100
07/04/23 22:15 07/04/23 22:14 07/04/23 22:15 07/04/23 22:14 07/04/23 22:15
CT Intake/Output/Weight
07/04/23 07/04/23 07/05/23
06:59 18:59 06:59
Intake Total 960 / 1160 200 / 1160
Output Total 500 / 650 1940 / 2340 400 / 2340
Balance -500 / -650 -980 / -1180 -200 / -1180
SaO2: 100 (RA)
Physical Exam
-
General: Awake, Oriented and AOx3
Cardiovascular: Irregular rate & rhythm and Murmur (3/6 systolic)
Respiratory: Clear
Sternum: Stable
Incision: Clean, Dry, Intact and Dressing Intact
Extremities: Other (+trace edema)
Data Reviewed
-
Lab Results: Results Reviewed
Medications: Active Meds Reviewed
Chest X-Ray: Report Reviewed and Image Reviewed
CT Scan: Report Reviewed and Image Reviewed
ECG: Report Reviewed and Image Reviewed
[2023-07-05 04:26] VITALS: BP 130/34
[2023-07-05 07:05] VITALS: BP 128/56
[2023-07-05] MEDS: MAGNESIUM OXIDE 500 MG PO (07:53)
[2023-07-05] MEDS: KCL 20 MEQ PO (07:53)
[2023-07-05] MEDS: SENOKOT-S 1 TABLET PO (07:53)
[2023-07-05] MEDS: TOPROL XL 37.5 MG PO ×2 (07:54→20:07)
[2023-07-05] MEDS: FEOSOL 325 MG PO ×2 (07:54→20:07)
[2023-07-05] MEDS: FOLVITE 1 MG PO (07:54)
[2023-07-05] MEDS: VITAMIN C 500 MG PO (07:55)
[2023-07-05] MEDS: LASIX 20 MG PO (07:55)
[2023-07-05 08:48] LABS: Hematocrit 30.2 % (39.0-52.0); Hemoglobin 9.5 g/dL (13.0-18.0); Mean Corp Hgb Conc. 31.5 g/dL (33.0-37.0); Mean Corpuscular Hgb 25.1 pg (27.0-31.0); Mean Corpuscular Volume 79.7 fL (80.0-94.0); Mean Platelet Volume 9.4 fL (7.4-10.4); Platelet Count 177 10^3/uL (130-400); Red Blood Cell Count 3.79 10^6/uL (4.70-6.10); Red Cell Dist. Width 16.1 % (11.5-14.5); White Blood Cell Count 5.3 10^3/uL (4.8-10.8)
[2023-07-05 09:01] LABS: APTT 79.3 Sec (23.4-35.0)
[2023-07-05 09:17] LABS: ALT (SGPT) < 10 U/L (0-50); AST (SGOT) 20 U/L (17-59); Alkaline Phosphatase 90 U/L (38-126); Blood Urea Nitrogen 10 mg/dl (9-20); Calcium 8.8 mg/dl (8.4-10.2); Carbon Dioxide 20 mmol/L (22-30); Chloride 105 mmol/L (98-107); Estimated Creatinine Clearance 70 ml/min; Glucose 99 mg/dl (70-99); Potassium 4.3 mmol/L (3.5-5.1); Sodium 134 mmol/L (135-145); Total Bilirubin 0.5 mg/dl (0.2-1.3); Total Protein 6.1 g/dl (6.3-8.2); eGFR > 60.00
[2023-07-05 09:22] VITALS: BMI 24.3
--- NOTE | 2023-07-05 09:25 | PTCARENOTE ---
Assumed care of pt from night RN. Pt received asleep but wakens easily to verbal. VSS, CM shows AF 90's, POX 98% on RA. Heparin infusing at 1250 units/hr, within therapeutic range. Pt offers no c/o pain or discomfort, will continue to monitor
closely.
--- NOTE | 2023-07-05 09:33 | W.PN.CARDCBS ---
Today's Communication / Plan
-
Possible TAVR TueJuly 05
Afib is permanent. Cont Toprol, QTc stable.Toprol XL dose increased to 37.5 mg BID this admission.
-Hx PVI in 2018. Previously on Sotalol that was stopped due to prolonged QT. Amiodarone stopped due to ineffectiveness.
-Previous admission 03/2023 for bradycardia, temp wire at [facility] was due to unexplained medication noncompliance as was taking old prescriptions of sotalol and amiodarone, also had resumed Sotalol prior to this admit
Cont IV Heparin while off oral anticoagulation. Xarelto held.
Pt does have some MS/MR but does not have surgical options.
Cont to monitor H/H which remains stable with multiple admits for GI bleeding in the past.
Impression / Plan
-
.
Primary Spot Man: Dr. Levine of [facility]
Nursing Home Director: Dr. Quinn
Assessment:
Direct admission 06/30/23 prior to planned surgical AVR for severe 07/01/23
now being considered for a TAVR on 07/06/23
Severe
previously recommended surgical AVR 11/2021, but patient cancelled and no-showed to multiple appointments
Likely severe mitral stenosis with mean gradient 11 and mod MR by echo 07/01/23
Anemia
h/o GIB
recent admission for GIB to [facility] requiring 5 units PRBCs, no obvious bleeding source by EGD/colon, needs outpatient capsule endoscopy 06/17/23
GIB with erosions and hemorrhoids at [facility] 02/2023
GIB with melena, ulcer and diverticular disease 2021
GIB with Hgb as low as 7, erythema, angiectasias 2020
Liver lesion concerning for HCC 03/24/23, seen on repeat CT at 06/30/23
AFP was normal
Alcoholic cirrhosis
Daily ETOH intake
Daily marijuana smoker
Chronic HFpEF
Right pleural effusion s/p Pleurx catheter being drained 3x/week since 03/2023
Persistent to permanent Afib
s/p PVI 12/29/17
previously on sotalol 2020, stopped due to QT prolongation
amiodarone started and then stopped due to failure to maintain SR
Chronic Xarelto OAC
Admission to [facility] for bradycardia and pleural effusion 03/2023
HR 30s requiring temporary transvenous pacer due to patient medication noncompliance and taking old prescriptions of amiodarone and sotalol for unclear reasons, resolved with washout period and eventually restarted on Toprol XL 25 mg daily
NASIR
CAD with 30-40% mid LAD lesion by cath 10/28/21
Diffuse severe calcific right radial artery by cath 10/28/21
Brain aneurysm, 2 mm ANGELITA aneurysm by MRA head 06/2013
BPH s/p TURP with negative biopsy 2020
ECHO 03/2017: GVH study, with preserved EF, LVH with wall thickness 1.2cm, mitral leaflet calcification with mild MS, mod , peak/mean gradients of 30/17mmHg, mild TR, PAP 43mmHg.
Echo 03/2023: GVH study, Normal biventricular systolic function, mild LVH, severely dilated LA and moderately dilated RA, sev , moderate aortic regurgitation with mean gradient 39 mmHg, mod MR
Echo 06/2022: GVH study, ILEANA less than 0.5 cm sq
Echo 07/01/23: EF 60-65%, severe LA and mod right RA dilatation, likely severe MS with mean gradient 11 mmHg and mod MR with very eccentric regurgitant jet possibly underestimating severity of MR, severe with peak/mean 73/39 mmHg and ILEANA 0.6 cm sq,
mild TR
Plan:
Possible TAVR TueJuly 05
Afib is permanent. Cont Toprol, QTc stable.Toprol XL dose increased to 37.5 mg BID this admission.
-Hx PVI in 2017. Previously on Sotalol that was stopped due to prolonged QT. Amiodarone stopped due to ineffectiveness.
-Previous admission 03/2023 for bradycardia, temp wire at [facility] was due to unexplained medication noncompliance as was taking old prescriptions of sotalol and amiodarone, also had resumed Sotalol prior to this admit
Cont IV Heparin while off oral anticoagulation. Xarelto held.
Pt does have some MS/MR but does not have surgical options.
Cont to monitor H/H which remains stable with multiple admits for GI bleeding in the past.
Reviewed with interventional cardiology.
MRI was not completed due to metallic object, alpha-fetoprotein is normal. GI recommended follow-up at [facility]. He also has known alcoholic cirrhosis and GI considers him compensated from a liver standpoint.
HPI: Patient presented to for direct admission for planned SAVR tomorrow. Patient follows with Dr. Levine at [facility]. Patient was found to have severe and was evaluated for TAVR, but due to significant calcifications extending into his
LVOT it was felt that he would be better served by surgical AVR. Patient was then referred to Dr. Dent for severe and was recommended surgical AVR approximately 11/2021, but then no-showed repeatedly and stopped returning phone calls. Patient
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 He has a h/o recurrent GIB. He was admitted for GIB 02/2023 and treated for gastric erosions and hemorrhoidal
bleeding. Patient then admitted to [facility] with bradycardia and HRs in the 30s requiring temporary transvenous pacemaker 03/2023 in the setting of taking old prescriptions of amiodarone and sotalol for unclear reasons. Once patient no longer had access
to meds his HR improved, temp wire was removed and he was restarted on Toprol. Patient then had 2 GIB admissions to [facility] 05/2023 and in between admissions saw Dr. Dent in the office and was agreeable to resuming SAVR. Patient with an extensive PMH
as outlined above after combing through all available [facility] records.
Progress Note - Spot Man
Subjective
Date of Service: July 05, 2023
Pt seen and examined. No cp or dyspnea.
Objective
Labs:
07/05/23 08:30
07/05/23 08:30
Labs
Hgb 9.5 g/dL (13.0-18.0) L 07/05/23 08:30
Hct 30.2 % (39.0-52.0) L 07/05/23 08:30
Plt Count 177 10^3/uL (130-400) 07/05/23 08:30
PT 15.1 Sec (11.4-14.6) H 06/30/23 11:28
INR 1.18 06/30/23 11:28
APTT 79.3 Sec (23.4-35.0) H 07/05/23 08:30
Sodium 134 mmol/L (135-145) L 07/05/23 08:30
Potassium 4.3 mmol/L (3.5-5.1) 07/05/23 08:30
BUN 10 mg/dl (9-20) 07/05/23 08:30
Creatinine 0.8 mg/dL (0.7-1.3) 07/05/23 08:30
Glucose 99 mg/dl (70-99) 07/05/23 08:30
Vital Signs and I&O:
Vital Signs
Temp Pulse Resp BP Pulse Ox
98.4 F 94 16 128/56 98
07/05/23 07:03 07/05/23 07:54 07/05/23 07:03 07/05/23 07:54 07/05/23 09:23
Vital Signs
Temp Pulse Resp BP Pulse Ox
98.4 F 94 16 128/56 98
07/05/23 07:03 07/05/23 07:54 07/05/23 07:03 07/05/23 07:54 07/05/23 09:23
Intake & Output
07/03/23 07/04/23 07/05/23 07/06/23
06:59 06:59 06:59 06:59
Intake Total 1160 / 1160
Output Total 900 / 900 650 / 650 2640 / 2640
Balance -900 / -900 -650 / -650 -1480 / -1480
Physical Exam
Physical Exam
General: No acute distress, AAOX3
Neck: Negative JVD
Heart: Irregularly irregular, Negative S3 positive S1/S2, Negative S4, No murmur
Lungs: CTA b/l, negative wheezes/rales/rhonchi
Abd: Positive BS, NT/ND, neg rebound/rigidity/guarding
Ext: Negative cyanosis/clubbing/edema
Neuro: nonfocal
[2023-07-05 11:25] VITALS: BP 124/66
--- NOTE | 2023-07-05 12:29 | PN.CDI ---
Addendum entered and electronically signed by Scott New PA-C 07/05/23 12:47:
Pt adm. for aortic stenosis.
continue tx. for hyponatremia
Original Note:
CDI
- -
CDI:
Physician Documentation Request
Admit Date: 06/30/23 10:36
Dear Doctor Filipe,
Patient admitted with severe aortic stenosis.
Na levels documented below:
Laboratory Tests
07/02/23 07/03/23 07/05/23
03:58 02:22 08:30
Sodium 131 L 133 L 134 L
Based on the above, please clarify in the progress notes, the appropriate diagnosis, if significant, that supports the above abnormalities and additional evaluation, monitoring and/or treatment rendered:
Hyponatremia
Insignificant abnormal lab findings
Other
Use of terms such as suspected, likely, concern for, or probable (associated with a specific diagnosis that is being evaluated, monitored, or treated as if it exists) are acceptable and can be coded in the inpatient setting, when documented at the
time of discharge.
Thank you,
Lizette LIU,RN,CCDS
CDI Specialist
Available via [place] text
Please use your independent medical judgment in providing your response.
[2023-07-05] MEDS: HEPARIN 25000 UNITS/250 ML IV (15:36)
[2023-07-05 15:50] VITALS: BP 128/70
[2023-07-05] MEDS: LIPITOR 20 MG PO (17:06)
[2023-07-05 19:57] VITALS: BP 144/82
[2023-07-05] MEDS: SENOKOT-S PO (20:07)
[2023-07-05 21:49] VITALS: BP 134/59
[2023-07-05] MEDS: DESYREL 50 MG PO (21:50)
[2023-07-06] VITALS (36 sets, daily range): BP systolic 80–153; BP diastolic 39–88; BMI 24.1
[2023-07-06 05:27] LABS: APTT 69.7 Sec (23.4-35.0)
[2023-07-06 05:53] LABS: ALT (SGPT) 11 U/L (0-50); AST (SGOT) 21 U/L (17-59); Albumin 2.7 g/dl (3.5-5.0); Alkaline Phosphatase 90 U/L (38-126); Blood Urea Nitrogen 8 mg/dl (9-20); Calcium 8.5 mg/dl (8.4-10.2); Carbon Dioxide 21 mmol/L (22-30); Chloride 107 mmol/L (98-107); Estimated Creatinine Clearance 70 ml/min; Glucose 109 mg/dl (70-99); Potassium 4.3 mmol/L (3.5-5.1); Sodium 133 mmol/L (135-145); Total Bilirubin 0.5 mg/dl (0.2-1.3); Total Protein 5.6 g/dl (6.3-8.2); eGFR > 60.00
[2023-07-06] MEDS: BACTROBAN 2% OINTMENT 1 APPLIC NASAL (06:03)
--- NOTE | 2023-07-06 06:34 | PTCARENOTE ---
VSS overnight, A-fib on the monitor. Pt. clipped and washed with chlorhexidine soap both last night and this morning; linens changed, CHG wiped this morning. Pt. for TAVR this morning, Per KARLI Manriquez, heparin to be dc'd manager transition to OR.
--- NOTE | 2023-07-06 07:00 | PTCARENOTE ---
Rec'd pt just before transport to Cardiac lab director for TAVR procedure this AM. Pt AAOx3 w/no c/o CP, pt dyspneic on exertion at baseline. Pt in bed, prepped, & awaiting pickup by lab director nurses. Pre-op VS stable. IR notified that pt will be off the
floor for a procedure & will call IR when pt returns to have pt's R lateral Asept drainage completed. Plan of care ongoing.
[2023-07-06] MEDS: ANCEF 10 IV (07:23)
[2023-07-06 08:40] LABS: ACT-LR - POC 313 Seconds (116-155)
[2023-07-06 09:03] LABS: ACT-LR - POC 271 Seconds (116-155)
--- NOTE | 2023-07-06 09:23 | W.CVOR.SURPR ---
CVOR Surgeon Immed Pre Op
-
I have examined this patient prior to performance of the scheduled procedure.
The patient's condition is unchanged from the time of the dictated/written History and
Physical and the patient is able to undergo the scheduled procedure.
--- NOTE | 2023-07-06 09:24 | CM ---
Reviewed chart. Mr Gonzalez is in the operating room today. Prior to admission he resides with his significant other in a three story home with one step to enter. He has a first floor set-up. Prior to admission he was independent with ambulation and
adls. He does not have any DME in the home. He has a pleural catheter rand WALDEN goes three times a week to drain the tube.
--- NOTE | 2023-07-06 09:24 | W.IMMPOSTOP ---
Surgical Immed Post Op Note
-
[id number]
STRUCTURAL HEART PROCEDURE NOTE: TAVR
Preoperative Dx:
Severe aortic stenosis (P/M: 73/39)
Wbjazxcl-bg-sstujg aortic insufficiency
Severe MAC w/ severe mitral stenosis (mean gradient 11mmHg)
Moderate mitral regurgitation
Recurrent pleural effusions s/p pleurex catheter
Longstanding persistent AF s/p prior PVI, Hx of AV block w/ junctional bradycardia requiring temporary pacing previously
Cirrhosis w/ possible HCC - MELD 9
EtOH abuse
Recent GIB
Hx of brain aneurysm & CVA
COPD
Hx of CKD
Medical non-compliance
Postoperative Dx:
Same
Zjozd-or-bhbjvyt combined systolic/diastolic CHF w/ elevated LVEDP 35
Procedures:
1) L TAG MAKER access w/ tactile, U/S, and fluoroscopic guidance, micropuncture technique, 6Fr sheath placement
2) L CFV access w/ U/S and fluoroscopic guidance, micropuncture technique, 6Fr sheath placement
3) R TAG MAKER access w/ tactile, U/S, and fluoroscopic guidance, micropuncture technique, limited angiography, 8Fr dilator placement
4) Placement of perclose sutures x 2 into R TAG MAKER (2 failures), placement of 8Fr sheath
5) Placement of temporary RV pacing wire via R CFV access w/ threshold testing
6) Placement of pigtail catheter in NCC w/ limited aortography & confirmation of cusp-overlap views
7) Serial dilation of R TAG MAKER/ileofemoral system w/ placement of 18Fr COOK sheath - systemic heparinization
8) Wire purchase across stenotic AV (AL-1, soft-tip straight, table-J, pigtail catheter, LVEDP assessment, lunderquist catheter)
9) Fluoroscopic inspection of TAVR valve
10) Pre-TAVR BAV w/ 20mm Z-med
11) R TF TAVR w/ placement of 34mm EVOLUT FX valve
12) Completion aortography (no significant AI appreciated)
13) Completion TTE (mean gradients 5-7mmHg, umhn-yf-bakvvlqw PVL)
14) Removal of valve delivery system/in-line sheath w/ R TAG MAKER mgmt w/ perclose sutures x 2, 8Fr angioseal, manual pressure
15) Completion R ileofemoral angiography
16) Limited L TAG MAKER angiography
17) Removal of L TAG MAKER sheath w/ mgmt w/ 6Fr angioseal, manual pressure
18) Removal of temporary pacing wire & L CFV sheath, manual pressure
Business Account Executive:
Dr. Di Mcgee
Cardiac Surgeon:
Dr. Jordan Dent
Anesthesia:
MAC w/ local to B/L groins
Implants:
Medtronic EVOLUT FX TAVR valve, 34mm, SN [id number]
Perclose x 2
8Fr angioseal x 1
6Fr angioseal x 1
Cath Data:
Start: 0804hrs, Deploy: 0849hrs, End: 0915hrs
FT: 13.0min, mGy: 479.82, DAP: 49.8387, Contrast: 120
Post-TTE: mean gradients 5-7mmHg, lgce-dr-fpzgfkra PVL
Condition:
Stable/guarded to recovery
--- NOTE | 2023-07-06 09:27 | CM ---
Reviewed chart. Mr. Foy is in the operating room today. Prior to admission he resides with his significant other in a three story home with one step to enter. He has a first floor set-up. Prior to admission he was independent with ambulation
and adls. He does not have any DME in the home. He has a pleural catheter that the [facility] comes out three times a week to drain. He has a prescription plan and uses [facility]. His significant other will be home to assist in his
care if needed. Medical work-up in progress. The discharge plan is to return home with his significant other and a home visit by the Cardiothoracic Transitional Care Nurse when medically stable.
--- NOTE | 2023-07-06 09:53 | W.PN.UPDATE ---
Update Note
Progress Note Update
Reviewed Mr. Foy with the heart team in the preTAVR SDM meeting and confirmed a 34 mm Evolut via right TF access. Patient will resume Xarelto post TAVR. LVEDP 23mmHg. 34 mm Evolut (serial# [id number]) successfully deployed via right transfemoral
access. Post implant MG 7mmHg.
[2023-07-06] MEDS: LEVOPHED 250 IV (10:10)
--- NOTE | 2023-07-06 10:38 | ITS.CL.TAVR ---
Stock Patch Sawyer - TAVR Report
TAVR PRocedure
Procedure Report:
TRANSCATHETER AORTIC VALVE REPLACEMENT
Date of Procedure: July 06, 2023
Referring: Marika Monreal and Dr. Levine
Operators: Drs. Di Mcgee and Jordan Dent MD
PROCEDURE PERFORMED:
1. Successful placement of 34 mm Medtronic Evolut FX valve via right common femoral artery.
PREPROCEDURE NYHA CLASS: III
DESCRIPTION OF PROCEDURE: The patient was referred for assessment of severe symptomatic aortic stenosis and following a comprehensive evaluation it was felt that transcatheter aortic valve replacement (TAVR) would be the most appropriate treatment.
Informed consent was obtained prior to the procedure. A 'time-out' was called and the procedural plan was verbally confirmed by anesthesia, surgery, perfusion, and laborer shellfish processing staff.
Arterial and venous access were obtained in the left common femoral artery and vein using a micropuncture technique and 6 Fr. sheaths were inserted. A 5 Fr. transvenous pacing wire was then advanced to the right ventricle where excellent pacing
thresholds were obtained.
A 5 Fr. pigtail catheter was then advanced to the proximal ascending aorta / noncoronary cusp where angiography was performed to define the the cusp overlap view isolating the non-coronary cusp with overlap of the right and left coronary cusps. The
cusp overlap view was LITTLE 16 / CAU 30.
Ultrasound guidance was then used to obtain arterial access in the right common femoral artery and a 6 Fr. sheath was inserted. Angiography was performed and the arteriotomy site appeared appropriate for preclosure with two Perclose devices. An 8
Cypriot sheath was then inserted back into the common femoral artery over a J-tipped guidewire. An AL1 catheter was then advanced to the proximal descending aorta. A Double-curve Youkuerrossi 0.035' wire was placed in the proximal descending
thoracic aorta to facilitate delivery of a 18 Fr / 13 cm Cook sheath.
An AL1 catheter was then positioned just above the aortic valve and a 0.035' Straight tip wire probed the aortic valve and crossed the stenotic leaflets. The AL1 was then advanced to the mid left ventricle. A long J-wire was advanced to the left
ventricular apex and was followed to the apex with an angled pig-tail catheter. An invasive left ventricular end-diastolic pressure was measured which was significantly elevated at 35 mmHg. The Evolut FX stent was inspected under fluoroscopy/cine
while rotating the stent delivery system. The stent paddles were within the pocket and no significant crown overlap noted. The Double Curve Lunderquist was then positioned in the left ventricular apex.
Balloon predilation was performed with rapid pacing using 22 mm Z-med balloon. The balloon was removed and the 18 Fr. sheath was exchanged for the Evolut InLine delivery system. The 34 mm Evolut FX stent was advanced across the stenotic leaflets.
The Evolut FX valve was slowly deployed in the leaflet overlap view until the stent flared achieving contact at 3-4mm below the noncoronary cusp. The stent continued to flared achieving contact with the left coronary cusp. The image intensifier
was rotated to an BURMESE position to remove parallax from the valve with continued valve deployment with controlled pacing. We transitioned quickly through the rumble strips on the InLine delivery sheath until the marker band was positioned just below
the paddle attachment. Angiography was performed. The valve structure was released from the delivery system when we were happy with the valve position. Post deployment angiography had only mild aortic insufficiency and a mean gradient of 5 mmHg
with mild to moderate PVL around the area of calcium in LVOT.
The EvolutFX delivery system capsule was reunited to the body of the delivery system. The Evolut InLine sheath was removed and the Perclose knots were advanced to the arteriotomy site with some residual arterial bleeding still and therefore a 8
Cypriot Angio-Seal was utilized in addition with excellent hemostasis.
Fluoro Time (min): 13, Dose (mGy): 479.8, DAP (Gy.cm2) : 49.8
CONCLUSIONS:
1. Severe symptomatic aortic stenosis. Successful deployment of a 34 mm Evolut FX valve with minimal aortic insufficiency post procedure.
2. Successful arteriotomy closure with 2 Perclose devices.
3. Acute on chronic diastolic heart failure with significantly elevated LVEDP of 35 mmHg.
Copy to: Marika Monreal and Dr. Levine
Di Mcgee MD, [facility], [facility]
--- NOTE | 2023-07-06 13:03 | PTCARENOTE ---
Rec'd report from Rebecca in the Cardiac Client Services Specialist & rec'd pt back to room at approx 1245. Pt drowsy but arousable, AAOx3 w/no c/o pain or SOB at this time. Bilat groin sites w/dressings C/D/I, there is a very small area of shadowing on the lower
part of the R groin dressing, marked by clay processing labourer RN. No signs or symptoms of bleeding or hematoma at either groin site. R brachial arterial line site that was D/C'd in clay processing labourer w/dressing C/D/I. VS stable w/BP 134/66, HR 83. Pt w/call marrero within
reach & no addtl needs at this time.
[2023-07-06] MEDS: ANCEF 5 IV (15:26)
[2023-07-06] MEDS: VITAMIN C 500 MG PO (15:37)
[2023-07-06] MEDS: LASIX 20 MG PO (15:37)
[2023-07-06] MEDS: MAGNESIUM OXIDE 500 MG PO (15:37)
[2023-07-06] MEDS: KCL 20 MEQ PO (15:38)
[2023-07-06] MEDS: SENOKOT-S PO (15:38)
[2023-07-06] MEDS: TOPROL XL 37.5 MG PO (15:38)
[2023-07-06] MEDS: FEOSOL 325 MG PO ×2 (15:38→22:15)
[2023-07-06] MEDS: FOLVITE 1 MG PO (15:38)
[2023-07-06] MEDS: FLUSH (NSS) 2 FLUSH IV (17:46)
[2023-07-06] MEDS: LASIX 20 MG IV (17:46)
[2023-07-06] MEDS: LIPITOR 20 MG PO (17:47)
[2023-07-06] MEDS: TOPROL XL 12.5 MG PO (22:15)
[2023-07-06] MEDS: SENOKOT-S 1 TABLET PO (22:15)
[2023-07-06] MEDS: TOPROL XL PO (22:15)
--- NOTE | 2023-07-06 23:13 | PTCARENOTE ---
Pt without complaints so far this shift- Afib on the monitor 90s- 120s. FRANCOISE Woodson in to see pt and discussed medication timing- Toprol decreased to 12.5mg for the 2000 dose. Plan of care discussed with pt. pt verbalized understanding. Neuro
status WNL. Palpable pedal pulses. R dressing small drainage present unchanged so far this shift. L dressing CDI. L ART line dressing CDI. voiding in the urinal. Call marrero within reach.
--- NOTE | 2023-07-07 00:57 | W.PN.CT ---
Addendum entered and electronically signed by Jordan Dent MD 07/07/23 09:11:
I saw and examined the patient.
The PA's note was reviewed and I agree with the note.
Comment:
POD#1 s/p R TF TAVR w/ 34 Chava
No major overnight events. AVSS. AF w/o pauses/bradycardia. No gtts. Groin sites OK. UO: spontaneous, adequate. Tolerating PO. Neuro: intact. 5.9>8.6<166; 9/0.8. CXR: clear.
- Echocardiogram today
- Resume home medications
- Xarelto only
- OOB/IS/ambulate
- D/C planning for hopefully later today
Original Note:
Today's Communication / Plan
-
-pod #1
-no significant issues overnight
-in a-fib 90s-low 100s with elevated BP last night - gave extra 12.5 mg Toprol (got 37.5 mg earlier)
-diuresed well with Lasix x2 (UO 1250)
-has R groin inguinal hernia. No hematoma b/l, soft, nontender
-Echo today
-Xarelto to be re-started 4/11 pm
-anemia preop - follow Hg
-encourage IS, OOB
Assessment / Plan
-
Assessment:
-Severe symptomatic aortic stenosis- s/p Pre-TAVR BAV w/ 20mm Z-med followed by R TF TAVR w/ placement of 34mm EVOLUT FX valve on 07/06/23, pod #1
-Cktet-ul-hcezixp combined systolic/diastolic CHF w/ elevated LVEDP 35- diuresed with Lasix 20 mg po and 20 mg iv
-Post-TTE: mean gradients 5-7mmHg, txvl-fl-dznljyxd PVL
-Moderate AI
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
-Mild TR
-LVEF 60-65%
-Probable hepatocellular carcinoma (2.6 cm)
-Recent GI bleed
-EtOH abuse
-Chronic atrial fibrillation -s/p pulmonary vein isolation, on Xarelto
-Obstructive sleep apnea
-Recurrent pleural effusions status post Pleurx placement in March 2023
-History of iron deficiency anemia
-Hyperlipidemia
-History of a CVA; no residual
-Chronic diastolic congestive heart failure
-History of AV block/junctional bradycardia requiring temporary pacing previously
-Single-vessel nonobstructive CAD
-Chronic kidney disease
-History of medical noncompliance
-COPD
-Cirrhosis/liver mass
-Gastric ulcer
Discussed patient care with: Nursing and Care Team
Subjective
Procedure
s/p Pre-TAVR BAV w/ 20mm Z-med followed by R TF TAVR w/ placement of 34mm EVOLUT FX valve on 07/06/23
-
Date of Service: July 07, 2023
Objective Data
-
PT 15.1 Sec (11.4-14.6) H 06/30/23 11:28
INR 1.18 06/30/23 11:28
APTT Cancelled 07/06/23 11:55
Vital Signs
Vital Signs
Temp Pulse Resp BP Pulse Ox
98.2 F 114 18 138/67 100
07/06/23 22:43 07/06/23 22:15 07/06/23 22:43 07/06/23 22:15 07/06/23 22:43
CT Intake/Output/Weight
07/06/23 07/06/23 07/07/23
06:59 18:59 06:59
Intake Total 3120 / 3120
Output Total 300 / 300 250 / 1250 1000 / 1250
Balance -300 / -300 2870 / 1870 -1000 / 1870
SaO2: 100
Physical Exam
-
General: Awake and AOx3
Cardiovascular: Irregular rate & rhythm, No Murmurs and No Rub
Respiratory: Decreased Breath Sounds
Incision: Other (groins are cdi, soft, nontender, no hematoma b/l. R groin has soft inguinal hernia)
Extremities: No Edema (palpable DP pulses b/l, R>L)
[2023-07-07 03:56] VITALS: BP 101/52
[2023-07-07 05:00] LABS: Hematocrit 28.4 % (39.0-52.0); Hemoglobin 8.6 g/dL (13.0-18.0); Mean Corp Hgb Conc. 30.3 g/dL (33.0-37.0); Mean Corpuscular Hgb 24.7 pg (27.0-31.0); Mean Corpuscular Volume 81.6 fL (80.0-94.0); Mean Platelet Volume 9.4 fL (7.4-10.4); Platelet Count 166 10^3/uL (130-400); Red Blood Cell Count 3.48 10^6/uL (4.70-6.10); Red Cell Dist. Width 16.4 % (11.5-14.5); White Blood Cell Count 5.9 10^3/uL (4.8-10.8)
[2023-07-07 05:25] LABS: Blood Urea Nitrogen 9 mg/dl (9-20); Calcium 8.5 mg/dl (8.4-10.2); Carbon Dioxide 20 mmol/L (22-30); Chloride 108 mmol/L (98-107); Estimated Creatinine Clearance 70 ml/min; Glucose 100 mg/dl (70-99); Potassium 4.6 mmol/L (3.5-5.1); Sodium 131 mmol/L (135-145); eGFR > 60.00
[2023-07-07 07:31] VITALS: BP 113/56
--- NOTE | 2023-07-07 07:56 | W.PN.ANS.POP ---
Anesthesia Post Operative
- Anesthesia Post Op Note
Vital Signs Stable-See Nursing Note: Yes
Airway Patent: Yes
Adequate Pain Control: Yes
Change in Mental Status: No
Current Postoperative Nausea & Vomiting: No
Anesthesia Complications: No
General Anesthetic Recall: No
Unplanned Admission: No
Post Op Hydration Adequate: Yes
--- NOTE | 2023-07-07 08:40 | W.PN.CARDCBS ---
Addendum entered and electronically signed by Di Mcgee MD 07/07/23 10:53:
I saw and examined the patient.
The Supervisor Pastry's note was reviewed and I agree with the note.
Comment: Mr. Foy is status post a 34 mm Evolut FX TAVR yesterday, July 06, 2023. Doing well without significant complaints. He is getting his Pleurx catheter drained by IR nursing and has put out about 700 cc of serosanguineous fluid.
Vital signs and lab work reviewed. Hemoglobin is stable with anemia noted. Other labs are also stable. ECG with persistent atrial fibrillation, rate controlled. On telemetry with atrial fibrillation, overall rate controlled with frequent PVCs.
On exam patient is a frail-appearing gentleman, older than stated age, in no acute distress, comfortable, awake and alert, oriented x 3, normal S1 and S2, 2 out of 6 holosystolic murmur at the apex, 1 out of 6 systolic ejection murmur at the right
upper sternal border, warm extremities, lungs with decreased breath sounds at the bases, right groin site which is dressed with minimal dried blood otherwise clean dry and intact with mild tenderness to palpation about the site. No bruit or
hematoma appreciated on exam. Left groin access site with dressing in place which is clean dry and intact.
Recommendations:
1. Echocardiogram postop day 1 after TAVR is reviewed. Preserved LV systolic function. TAVR valve appears well-seated with mean transaortic gradient of 9 mmHg. Mild PVL. Moderate mitral regurgitation with significant MAC.
2. Plan to resume Xarelto today. Once his Pleurx catheter is drained we will get him up and moving and make sure that the right groin pain remains stable or resolved. Currently no indication for further imaging given no bruit or hematoma
appreciated on exam. If pain is consistent, we can consider this.
3. Discharge planning with tentative plan for discharge later today versus tomorrow.
Di Mcgee MD, [facility], [facility]
Original Note:
Today's Communication / Plan
-
s/p TAVR 07/05
Follow up echo today
Remains in rate controlled afib. Continue Toprol
Xarelto resumed 07/06
Impression / Plan
-
Primary Facility Sales And Admin: Dr. Levine of [facility]
Project Estimator: Dr. Quinn
Assessment:
Severe s/p 34mm Evolut FX TAVR 07/06/2023
Likely severe mitral stenosis with mean gradient 11 and mod MR by echo 07/01/23
Anemia
h/o GIB
recent admission for GIB to [facility] requiring 5 units PRBCs, no obvious bleeding source by EGD/colon, needs outpatient capsule endoscopy 06/17/23
GIB with erosions and hemorrhoids at [facility] 02/2023
GIB with melena, ulcer and diverticular disease 2021
GIB with Hgb as low as 7, erythema, angiectasias 2020
Liver lesion concerning for HCC 03/24/23, seen on repeat CT at 06/30/23
AFP was normal
Alcoholic cirrhosis
Daily ETOH intake
Daily marijuana smoker
Chronic HFpEF
Right pleural effusion s/p Pleurx catheter being drained 3x/week since 03/2023
Persistent to permanent Afib
s/p PVI 12/29/17
previously on sotalol 2020, stopped due to QT prolongation
amiodarone started and then stopped due to failure to maintain SR
Chronic Xarelto OAC
Admission to [facility] for bradycardia and pleural effusion 03/2023
HR 30s requiring temporary transvenous pacer due to patient medication noncompliance and taking old prescriptions of amiodarone and sotalol for unclear reasons, resolved with washout period and eventually restarted on Toprol XL 25 mg daily
NASIR
CAD with 30-40% mid LAD lesion by cath 10/28/21
Diffuse severe calcific right radial artery by cath 10/28/21
Brain aneurysm, 2 mm ANGELITA aneurysm by MRA head 06/2013
BPH s/p TURP with negative biopsy 2020
ECHO 03/2017: GVH study, with preserved EF, LVH with wall thickness 1.2cm, mitral leaflet calcification with mild MS, mod , peak/mean gradients of 30/17mmHg, mild TR, PAP 43mmHg.
Echo 03/2023: GVH study, Normal biventricular systolic function, mild LVH, severely dilated LA and moderately dilated RA, sev , moderate aortic regurgitation with mean gradient 39 mmHg, mod MR
Echo 06/2022: GVH study, ILEANA less than 0.5 cm sq
Echo 07/01/2023: EF 60-65%, severe LA and mod right RA dilatation, likely severe MS with mean gradient 11 mmHg and mod MR with very eccentric regurgitant jet possibly underestimating severity of MR, severe with peak/mean 73/39 mmHg and ILEANA 0.6 cm
sq, mild TR
Echo 07/07/2023: Study pending
Plan:
-Presented as direct admission for planned SAVR, however due to multiple comorbidities, he was not felt to be SAVR candidate and instead underwent TAVR 07/06/2023.
-Seen POD#1. Doing well with no complaints overnight.
-Echo pending.
-Remains in persistent atrial fibrillation. HR stable on current dose of Toprol 37.5mg BID.
-Xarelto 20mg daily resumed 07/06.
-Pt does have some MS/MR but does not have surgical options. Follow as OP.
-Hgb 8.6 in AM 07/06, continue to monitor. He has h/o multiple admissions for GIB in the past.
-Appears euvolemic. Continue PO lasix 20mg daily. Weight 136lbs.
-K stable, continue supplementation.
-Continue lipitor.
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
HPI: Patient presented to for direct admission for planned SAVR tomorrow. Patient follows with Dr. Levine at [facility]. Patient was found to have severe and was evaluated for TAVR, but due to significant calcifications extending into his
LVOT it was felt that he would be better served by surgical AVR. Patient was then referred to Dr. Dent for severe and was recommended surgical AVR approximately 11/2021, but then no-showed repeatedly and stopped returning phone calls. Patient
was also spotty with follow up at his primary job press feeder's office, but has had a series of admissions to [facility] since about 01/2023. He has a h/o recurrent GIB. He was admitted for GIB 02/2023 and treated for gastric erosions and hemorrhoidal
bleeding. Patient then admitted to [facility] with bradycardia and HRs in the 30s requiring temporary transvenous pacemaker 03/2023 in the setting of taking old prescriptions of amiodarone and sotalol for unclear reasons. Once patient no longer had access
to meds his HR improved, temp wire was removed and he was restarted on Toprol. Patient then had [address] [facility] 05/2023 and in between admissions saw Dr. Dent in the office and was agreeable to resuming SAVR. Patient with an extensive PMH
as outlined above after combing through all available [facility] records.
Progress Note - Facility Sales And Admin
Subjective
Date of Service: July 07, 2023
No complaints this AM. Lying in bed comfortably.
Objective
Labs:
07/07/23 04:01
07/07/23 04:01
Labs
Hgb 8.6 g/dL (13.0-18.0) L 07/07/23 04:01
Hct 28.4 % (39.0-52.0) L 07/07/23 04:01
Plt Count 166 10^3/uL (130-400) 07/07/23 04:01
PT 15.1 Sec (11.4-14.6) H 06/30/23 11:28
INR 1.18 06/30/23 11:28
APTT Cancelled 07/06/23 11:55
Sodium 131 mmol/L (135-145) L 07/07/23 04:01
Potassium 4.6 mmol/L (3.5-5.1) 07/07/23 04:01
BUN 9 mg/dl (9-20) 07/07/23 04:01
Creatinine 0.8 mg/dL (0.7-1.3) 07/07/23 04:01
Glucose 100 mg/dl (70-99) H 07/07/23 04:01
Vital Signs and I&O:
Vital Signs
Temp Pulse Resp BP Pulse Ox
100 F 75 20 113/56 96
07/07/23 07:29 07/07/23 08:00 07/07/23 07:29 07/07/23 07:31 07/07/23 07:29
Vital Signs
Temp Pulse Resp BP Pulse Ox
100 F 75 20 113/56 96
07/07/23 07:29 07/07/23 08:00 07/07/23 07:29 07/07/23 07:31 07/07/23 07:29
Intake & Output
07/05/23 07/06/23 07/07/23 07/08/23
06:59 06:59 06:59 06:59
Intake Total 1160 / 1160 3120 / 3120
Output Total 2640 / 2640 300 / 300 1250 / 1250
Balance -1480 / -1480 -300 / -300 1870 / 1870
Physical Exam
Physical Exam
GEN: No distress, awake, alert, oriented x3
HEENT: supple, anicteric, mmm
LUNGS: CTA b/l, no wheezes/rales
CV: Irreg, S1/S2, no murmur
EXT: No clubbing, cyanosis, or edema
NEURO: Gross non-focal
SKIN: Warm, dry, no rash
[2023-07-07] MEDS: KCL 20 MEQ PO (09:27)
[2023-07-07] MEDS: LASIX 20 MG PO (09:27)
[2023-07-07] MEDS: VITAMIN C 500 MG PO (09:28)
[2023-07-07] MEDS: SENOKOT-S PO (09:28)
[2023-07-07] MEDS: FEOSOL 325 MG PO (09:28)
[2023-07-07] MEDS: FOLVITE 1 MG PO (09:28)
[2023-07-07] MEDS: TOPROL XL 37.5 MG PO (09:28)
[2023-07-07] MEDS: MAGNESIUM OXIDE 500 MG PO (09:28)
--- NOTE | 2023-07-07 09:50 | PN.IRAD.UPD ---
Update Note - IRAD
- -
Right Asept drained bedside 750 ml blood tinged fluid. Site cleaned and dressed.
--- NOTE | 2023-07-07 10:46 | W.DCSUMMARY ---
Discharge Summary
Discharge Data
Date of Admission: 06/30/23
Date of Discharge: 07/07/23
-
Pending Results: No
Hospital Course
Primary care physician: Alex Ren
Outpatient intake worker: Sony Workman
Inpatient consultants: [facility], Gastroenterology- Dr. Gregorio,
Procedures:
1. 07/06/23 Right transfemoral Transcatheter aortic valve replacement with a 34mm Medtronic Evolut Fx valve with Pre deployment Balloon valvuloplasty by Drs. Jordan Dent & Di Mcgee
Primary Diagnosis:
1. severe aortic stenosis
2. acute on chronic systolic and diastolic congestive heart failure
Secondary Diagnoses:
1. moderate mitral regurgitation
2. History of gastric ulcer and recent gastrointestinal bleed, requiring admission/transfusion at [facility] 05/2023
3. History of alcohol abuse
4. Chronic atrial fibrillation status post pulmonary vein isolation, on Xarelto
5. Obstructive sleep apnea
6. Recurrent pleural effusion status post right Pleurx catheter placement in March 2023 with 3 times weekly drainage by [facility]
7. History of iron deficiency anemia
8. Hyperlipidemia
9. History of cerebrovascular accident
10. Nonobstructive coronary artery disease
11. Chronic kidney disease
12. Chronic obstructive pulmonary disease
13. History of medical noncompliance
14. Cirrhosis
15. Liver mass concerning for hepatocellular carcinoma, requiring further workup
16. Diffuse severe calcific right radial artery by cath 10/28/21
17. Brain aneurysm 06/2013
18. Benign prostatic hypertrophy status post Transurethral resection of prostate 2020
HPI: Patient is a 67-year-old male with longstanding history of medical noncompliance with severe aortic stenosis and chronic heart failure initially presented as an outpatient for evaluation for surgical AVR. Workup was mostly completed
preadmission testing and he was planned for admission on 06/30/2023 with a surgical date of 06/30/2024.
Hospital course: Upon his planned admission patient completed H&H due to recent GI bleed and a CT of chest abdomen pelvis which unfortunately demonstrated concern for cirrhosis and a lesion concerning for hepatocellular carcinoma. Due to this new
information patient remained an inpatient and workup was done to determine if TAVR would be a better option. Gastroenterology was consulted, he apparently has a longstanding GI history mostly cared for at [facility], with history of GI bleeding
secondary to AVMs. His MELD score was calculated at 9, and due to the additional information concerning cirrhosis and questionable hepatocellular carcinoma decision was made to proceed with TAVR instead of SAVR. On 07/06/2023 he underwent a
successful right transfemoral TAVR by Drs. Jordan Dent and iD Mcgee without any periprocedural complications. LVEDP was noted to be elevated at 35 and he was given a dose of IV Lasix postop. He transferred to recovery and then IVU in stable
condition. He had a small left femoral hematoma which resolved with manual compression. He remained stable overnight on postop day 1, medications have been resumed, his beta-keya has been titrated up due to hypertension. Xarelto to be resumed
in the evening of 07/06. Patient is ambulating without difficulty and vitals have remained stable. Follow-up echocardiogram demonstrates a well-seated TAVR with a mean gradient of 9 and mild perivalvular leak. Patient was discharged to home with
[facility] CINDY who will resume his Pleurx catheter care.
Home medication changes:
New iron and vitamin C for anemia, increased dose of Lopressor for hypertension. resume all other home meds
Discharge Plan
-
Patient Disposition: Home with Home Care
Discharge Diagnosis/Procedures: TF-TAVR
Condition: Fair
Diet: 2 Gram Sodium
Activity: As tolerated
Driving Restrictions: No driving for 1 week
Bathing Restrictions: OK to Shower
Others Tests: 30 Day Follow Up Echocardiogram: 08/05/2023 at 9am at [facility] cardiology office
Other Services: Cardiac Rehab
Wound Care: Please do not apply lotions, cream or powders to groin areas. Please monitor for increased redness, pain, swelling or drainage. Please call your doctor if any occur.
Specialty Instructions: Weigh Daily- Call MD for wt gain/loss 3 lbs overnight/5 lbs in 1 week
Activity Restrictions/Additional Instructions:
YOU HAVE LIVER CIRRHOSIS & A LIVER LESION THAT IS INDETERMINATE AT THIS TIME. PLEASE FOLLOW UP WITH [facility] PREVIOUSLY REFERRED.
Referrals:
[facility] [Outside]
Alex Ren MD [Family Provider] - in four to six weeks (Please make an appointment in four to six weeks. )
Lemuel Levine MD [Active] - 08/04/23 1:15 pm
Lenny Randolph MD [Non-Admitting Privileges] - in two to four weeks (please follow up with any provider with [facility] for your liver disease/cirrhosis.)
Prescriptions:
New
ferrous sulfate [FeroSul] 325 mg (65 mg iron) Tablet
325 mg PO BID Qty: 60 1RF
acetaminophen 325 mg Tablet
650 mg PO Q6HPRN PRN (Reason: BOOKER, mild pain, or fever >101F) Qty: 0 0RF
metoprolol succinate 25 mg Tablet Extended Release 24 Hr
37.5 mg PO BID Qty: 90 1RF
sennosides-docusate sodium [Stool Softener-Stimulant Laxat] 8.6-50 mg Tablet
1 tab PO BID PRN (Reason: Constipation) Qty: 0 0RF
ascorbic acid (vitamin C) [Vitamin C] 500 mg Tablet
500 mg PO DAILY Qty: 30 1RF
Continued
atorvastatin 20 mg Tablet
20 mg PO DAILY
trazodone 50 mg Tablet
50 mg PO HS PRN (Reason: sleep)
potassium chloride [Klor-Con] 20 mEq Packet
20 meq PO DAILY
folic acid 1 mg Tablet
1 mg PO DAILY
furosemide 20 mg Tablet
20 mg PO DAILY
vitamin B complex Capsule
1 cap PO DAILY
magnesium 200 mg Tablet
400 mg PO DAILY
omega [id number]-fish oil [Fish Oil] 1,200 (144-216) mg Capsule
1 cap PO BID
Xarelto 20 MG tablet
20 mg PO QPM
Discontinued
metoprolol succinate 25 mg Tablet Extended Release 24 Hr
25 mg PO BID
Discharge Orders:
Discharge Patient (As Directed); Ordered 07/07/23
Ordered By: Dianne Meza
Care Plan Goals
Care Plan Goals:
Problem: Readiness for enhanced knowledge related to diagnosis and treatment plan
Goal: Understand your diagnosis and treatment plan needs, including medications if applicable.
Instructions: Know your diagnosis, underlying causes and treatment plan options, including medications if applicable. Consult with your health care team to learn about your diagnosis and treatment plan, including medications if applicable.
Discharge Date and Time
Discharge Date/Time: 07/07/23 14:12
Print Language: THAI
--- NOTE | 2023-07-07 10:49 | CM ---
Reviewed chart. Met with Mr. Foy to review discharge plans. He states he is feeling well. [facility] He is agreeable to resuming services with [facility]. Telephone call to [facility] Nancy to update her
regarding discharge plans. Sent referral to [facility]. Prior to admission he resides with his significant other in a three story home with one step to enter. He states he has a first floor set-up. Prior to admission he was independent with
ambulation and adls. He does not have DME in the home. He has a prescription plan and use [facility]. Medical work-up in progress. The discharge plan is to return home with his significant other and [facility] when medically stable.
[2023-07-07 11:49] VITALS: BP 121/41
--- NOTE | 2023-07-07 13:47 | PTCARENOTE ---
Pt's bilat IV lines D/C'd by PCT. Telemetry pack D/C'd. D/C instructions discussed w/pt & pt left via WC to lobby where he was taken by Uber to home.
== END 2023-07-07 14:12 | disposition home health service (06) | DRG 266 ==
LOC: IVU 10:36
PROVIDERS: Clinical Nurse Specialist Acute Care; Internal Medicine Cardiovascular Disease; Nurse Practitioner; Physician Assistant Medical; Physician Assistant Surgical; ADMITTING PHYSICIAN Thoracic Surgery (Cardiothoracic Vascular Surgery); CONSULT PHYSICIAN Internal Medicine Gastroenterology; FAMILY PHYSICIAN Family Medicine; OTHER PHYSICIAN Internal Medicine Interventional Cardiology
PROC: 02RF38Z Replacement of Aortic Valve with Zooplastic Tissue, Percutaneous Approach (ICD-10-PCS; 2023-07-06)
DX: I35.0 Nonrheumatic aortic (valve) stenosis (principal); Z00.6 Encounter for examination for normal comparison and control in clinical research program; I50.43 Acute on chronic combined systolic (congestive) and diastolic (congestive) heart failure; E87.1 Hypo-osmolality and hyponatremia; I48.21 Permanent atrial fibrillation; I13.0 Hypertensive heart and chronic kidney disease with heart failure and stage 1 through stage 4 chronic kidney disease, or unspecified chronic kidney disease; D62 Acute posthemorrhagic anemia; C22.0 Liver cell carcinoma; K70.30 Alcoholic cirrhosis of liver without ascites; G47.33 Obstructive sleep apnea (adult) (pediatric); I67.1 Cerebral aneurysm, nonruptured; E88.09 Other disorders of plasma-protein metabolism, not elsewhere classified; F12.90 Cannabis use, unspecified, uncomplicated; R91.1 Solitary pulmonary nodule; F17.210 Nicotine dependence, cigarettes, uncomplicated; I25.10 Atherosclerotic heart disease of native coronary artery without angina pectoris; I05.0 Rheumatic mitral stenosis; F10.10 Alcohol abuse, uncomplicated; N18.9 Chronic kidney disease, unspecified; D50.9 Iron deficiency anemia, unspecified; E78.00 Pure hypercholesterolemia, unspecified; J44.9 Chronic obstructive pulmonary disease, unspecified; K21.9 Gastro-esophageal reflux disease without esophagitis; R13.10 Dysphagia, unspecified; K40.90 Unilateral inguinal hernia, without obstruction or gangrene, not specified as recurrent; Z79.01 Long term (current) use of anticoagulants; Z79.899 Other long term (current) drug therapy; Z86.73 Personal history of transient ischemic attack (TIA), and cerebral infarction without residual deficits; Z87.11 Personal history of peptic ulcer disease; Z91.148 Patient's other noncompliance with medication regimen for other reason
CPT/HCPCS: 93308; 94727; 94729; 33361; 36415; 70030; 71045; 71046; 71260; 74177; 76937; 80048; 80053; 81003; 81015; 82105; 82248; 82728; 83036; 83540; 83550; 83735; 85025; 85027; 85347; 85610; 85730; 86850; 86900; 86901; 86920; 87070; 93005; 93306; 93321; 93325; 93880; 94010; 99406; C1760; C1769; C1894; Q9967